=== PATIENT | female | born 1980 | race Hispanic/Latino ===

== ENCOUNTER 2020-01-10 11:49 | Emergency (ER) | payer MEDICARE ==
--- NOTE | 2020-01-10 13:30 | XRay Report ---
CHEST 2 VIEWS INDICATION / CLINICAL INFORMATION: Chest Pain. COMPARISON: None available. FINDINGS: SUPPORT DEVICES: None. HEART / MEDIASTINUM: No significant abnormality. LUNGS / PLEURA: No significant pulmonary or pleural abnormality. No pneumothorax. ADDITIONAL FINDINGS: No significant additional findings. IMPRESSION: 1. No acute findings. Signer Name: Brad Barton MD Signed: 01/10/2020 1:26 PM Workstation Name: [id number]
--- NOTE | 2020-01-10 13:39 | Cat Scan Report ---
CT BRAIN: 01/10/2020 INDICATION / CLINICAL INFORMATION: AMS. COMPARISON: None available. FINDINGS: BRAIN/INTRACRANIAL STRUCTURES: Unenhanced CT images of the brain demonstrate no evidence of acute int racranial abnormality. Ventricles and sulci are within normal limits of size and shape for a patient of this age. There is no evidence of acute ischemic injury, hemorrhage, or mass. There are no abnormal extra-axial fluid collections. EXTRACRANIAL STRUCTURES: Unremarkable. IMPRESSION: Negative unenhanced CT of the brain. All CT scans at this location are performed using dose reduction to ALARA by means of automated expos ure control. Signer Name: Lee Jimenez MD Signed: 01/10/2020 1:34 PM Workstation Name: [id number]
[2020-01-10 14:27] LABS: Hematocrit 35.5 % (30.3-42.9); Hemoglobin 12.4 gm/dl (10.1-14.3); Mean Corpuscular HGB Conc 35 % (30-34); Mean Corpuscular Volume 84 fl (79-97); Platelet Count 253 K/mm3 (140-440); Red Blood Count 4.24 M/mm3 (3.65-5.03); Red Cell Distribution Width 13.7 % (13.2-15.2)
[2020-01-10 14:31] LABS: INR 1.03 (0.87-1.13); Partial Thromboplastin Time 23.8 Sec. (24.2-36.6)
[2020-01-10 14:42] LABS: Creatine Kinase MB 1.9 ng/mL (0.0-4.0)
[2020-01-10 14:46] LABS: Alanine Aminotransferase 29 units/L (7-56); Albumin 4.1 g/dL (3.9-5)
[2020-01-10 15:17] LABS: Bilirubin,Direct < 0.2 mg/dL (0-0.2)
--- NOTE | 2020-01-10 15:21 | Emergency Department Report ---
ED General Adult HPI - General Chief complaint: Chest Pain Stated complaint: CHEST PAIN Time Seen by Provider: 01/10/20 12:23 Source: patient, family Mode of arrival: Ambulatory Limitations: No Limitations - History of Present Illness Initial comments: This is a 47-year-old female that does not complain of chest pain. She does not complain of pain whatsoever. According to the triage note there was a complaint of chest pain and she was given aspirin and nitroglycerin x1 and route. However she tells me that she is a patient who has been at [facility] for at least 2 days. She was prior at [facility] for depression and suicidal ideation. She states that she did not take an overdose. She does not complain of shortness of breath nor chest pain. She does not complain of leg swelling or pain. She states that she was sent from [facility] because she was weak and dizzy for evaluation. She is poorly cooperative. She is somewhat lethargic. She is not providing a lot of information spontaneously but did answer questions. -: days(s) - Related Data Allergies Allergy/AdvReac Type Severity Reaction Status Date / Time clarithromycin [From Biaxin] Allergy Hives Verified 01/10/20 12:29 prochlorperazine Allergy Vomiting Verified 01/10/20 12:30 [From Compazine] tramadol Allergy Seizure Verified 01/10/20 12:30 ED Review of Systems ROS: Stated complaint: CHEST PAIN Other details as noted in HPI Comment: Unobtainable due to pts medical conditions ED Past Medical Hx - Past Medical History Previous Medical History?: No Additional medical history: Denies cardiac history. Denies history of VTE or previous anticoagulation. Denies history of diabetes. - Social History Smoking Status: Former Smoker Substance Use Type: None ED Physical Exam - General Limitations: Altered Mental Status (Psychiatric disorder for cooperation), Physical Limitation General appearance: lethargic - Head Head exam: Present: atraumatic, normocephalic - Eye Eye exam: Present: normal appearance. Absent: scleral icterus - ENT ENT exam: Present: mucous membranes moist - Neck Neck exam: Present: normal inspection. Absent: tenderness, meningismus - Respiratory Respiratory exam: Present: normal lung sounds bilaterally. Absent: respiratory distress - Cardiovascular Cardiovascular Exam: Present: regular rate, normal rhythm. Absent: systolic murmur, diastolic murmur, rubs, gallop - GI/Abdominal GI/Abdominal exam: Present: soft, normal bowel sounds. Absent: distended, tenderness, guarding, rebound, rigid - Extremities Exam Extremities exam: Present: normal capillary refill. Absent: pedal edema, calf tenderness - Back Exam Back exam: Present: other (Limited exam) - Neurological Exam Neurological exam: Present: alert, oriented X3, CN II-XII intact (As testable). Absent: motor sensory deficit - Psychiatric Psychiatric exam: Present: depressed, flat affect - Skin Skin exam: Present: warm, dry, intact, normal color. Absent: rash ED Course Vital Signs 01/10/20 01/10/20 01/10/20 12:02 12:16 12:30 Temperature 98.6 F Pulse Rate 72 75 Respiratory 14 12 38 H Rate Blood Pressure 120/84 117/82 O2 Sat by Pulse 100 99 Oximetry 01/10/20 01/10/20 01/10/20 13:02 13:30 14:00 Temperature Pulse Rate Respiratory Rate Blood Pressure 117/82 108/66 117/82 O2 Sat by Pulse 99 95 93 Oximetry 01/10/20 14:30 Temperature Pulse Rate Respiratory Rate Blood Pressure 92/63 O2 Sat by Pulse 94 Oximetry ED Medical Decision Making - Lab Data Result diagrams: 01/10/20 13:00 01/10/20 13:00 Laboratory Results - last 24 hr 01/10/20 01/10/20 01/10/20 13:00 13:00 13:00 WBC 8.7 RBC 4.24 Hgb 12.4 Hct 35.5 MCV 84 MCH 29 MCHC 35 H RDW 13.7 Plt Count 253 Lymph % (Auto) Propellant [employer]er [place] % (Auto) Propellant Assembler Eos % (Auto) Propellant Assembler Baso % (Auto) Propellant As[employer]er Lymph # Propellant As[employer]er [place] # Propellant Assembler Eos # Propellant Assembler Baso # Propellant Assembler Seg Neutrophils % Propellant Assembler Seg Neutrophils # Propellant Assembler PT INR APTT Lactic Acid Magnesium Total Bilirubin 0.20 Direct Bilirubin < 0.2 Indirect Bilirubin 0.0 AST 27 ALT 29 Alkaline Phosphatase 82 Total Creatine Kinase 92 CK-MB (CK-2) 1.9 CK-MB (CK-2) Rel Index 2.0 Troponin T < 0.010 NT-Pro-B Natriuret Pep Total Protein 7.6 Albumin 4.1 Albumin/Globulin Ratio 1.2 HCG, Qual 01/10/20 01/10/20 01/10/20 13:00 13:00 13:00 WBC RBC Hgb Hct MCV MCH MCHC RDW Plt Count Lymph % (Auto) [place] % (Auto) Eos % (Auto) Baso % (Auto) Lymph # [place] # Eos # Baso # Seg Neutrophils % Seg Neutrophils # PT 13.6 INR 1.03 APTT 23.8 L Lactic Acid 1.50 Magnesium 2.30 Total Bilirubin Direct Bilirubin Indirect Bilirubin AST ALT Alkaline Phosphatase Total Creatine Kinase CK-MB (CK-2) CK-MB (CK-2) Rel Index Troponin T NT-Pro-B Natriuret Pep 53.25 Total Protein Albumin Albumin/Globulin Ratio HCG, Qual 01/10/20 13:00 WBC RBC Hgb Hct MCV MCH MCHC RDW Plt Count Lymph % (Auto) [place] % (Auto) Eos % (Auto) Baso % (Auto) Lymph # [place] # Eos # Baso # Seg Neutrophils % Seg Neutrophils # PT INR APTT Lactic Acid Magnesium Total Bilirubin Direct Bilirubin Indirect Bilirubin AST ALT Alkaline Phosphatase Total Creatine Kinase CK-MB (CK-2) CK-MB (CK-2) Rel Index Troponin T NT-Pro-B Natriuret Pep Total Protein Albumin Albumin/Globulin Ratio HCG, Qual Negative - EKG Data -: EKG Interpreted by Wi EKG shows normal: sinus rhythm, axis, intervals, QRS complexes, ST-T waves Rate: normal - Radiology Data Radiology results: report reviewed (Chest x-ray no acute process) Critical care attestation.: If time is entered above; I have spent that time in minutes in the direct care of this critically ill patient, excluding procedure time. ED Disposition Clinical Impression: Medical clearance for psychiatric admission, Psychiatric disorder Disposition: - TO HOME OR SELFCARE Is pt being admited?: No Does the pt Need Aspirin: No Condition: Stable Additional Instructions: Further care at [facility]. Referrals: PRIMARY CARE, [Primary Care Provider] - 3-5 Days Time of Disposition: 15:55
[2020-01-10 15:50] LABS: BUN/Creatinine Ratio 22; Blood Urea Nitrogen 13 mg/dL (7-17); Calcium 9.3 mg/dL (8.4-10.2); Hemolysis Index 82
[2020-01-10 16:11] VITALS: BP 108/78
[2020-01-10 16:14] LABS: HCG Qualitative,Urine Negative (Negative)
[2020-01-10 16:23] LABS: Bilirubin,Urine NEG (Negative); Blood,Urine NEG (Negative); Color,Urine Yellow (Yellow); Hyaline Casts,Urine 6 /LPF; Mucus,Urine FEW /HPF; Protein,Urine <15 mg/dL mg/dL (Negative); Urobilinogen,Urine < 2.0 mg/dL (<2.0)
== END 2020-01-10 17:25 | disposition home or self-care (01) ==
LOC: ED 11:49
DX: Z04.6 Encounter for general psychiatric examination, requested by authority (principal); F99 Mental disorder, not otherwise specified; R53.1 Weakness; R42 Dizziness and giddiness; Z87.891 Personal history of nicotine dependence; Z88.8 Allergy status to other drugs, medicaments and biological substances
CPT/HCPCS: 36415; 70450; 71046; 80048; 80076; 81001; 81025; 82140; 82550; 82553; 83735; 83880; 84484; 84703; 85025; 85379; 85610; 85730; 93005

== ENCOUNTER 2020-05-04 20:55 | Emergency (ER) | payer MEDICARE ==
[2020-05-04] MEDS ORDERED: levETIRAcetam 1000 MG/NS 0.75% 1,000 MG/100 ML BAG IV ONE (21:04)
[2020-05-04] MEDS ORDERED: ONDANSETRON 4 MG/2 ML INJ IV ONE (21:07)
[2020-05-04] MEDS ORDERED: MORPHINE 4 MG/1 ML INJ IV ONE (21:07)
--- NOTE | 2020-05-04 21:10 | Emergency Department Report ---
ED Seizure HPI - General Chief Complaint: Seizure Stated Complaint: POSS SZ Time Seen by Provider: 05/04/20 21:03 Source: patient, EMS Mode of arrival: Stretcher Limitations: No Limitations - History of Present Illness Initial Comments: Chief complaint: "I could feel a seizure coming on." HPI this is a 39-year-old female with history of seizure disorder, TIA, hypertension who presents with witnessed seizure. Several household members witness generalized tonic-clonic seizure which lasted 1 to 2 minutes. Patient stated that she fell to the floor as a result of the seizure. She aggravated chronic back pain as a result of the fall. She has history of several back surgeries and chronic back pain. She normally takes phenobarbital to treat seizure disorder. She has been without this medication for quite some time. MD Complaint: seizure -: Sudden, This evening Description of Episode: loss of consciousness, tonic-clonic movement Witnessed:: Yes Trauma: No Seizure History: known seizure disorder Place: home Possible Precipitating Event: other (Lack of medication, she has been without phenobarbital) Associated Symptoms: other (Chronic back pain) Treatments Prior to Arrival: none (EMS transport) - Related Data Previous Rx's Medication Instructions Recorded Last Taken Type PHENobarbitaL [PHENobarbital] 60 mg PO BID 30 Days #60 tablet 05/05/20 Unknown Rx Allergies Allergy/AdvReac Type Severity Reaction Status Date / Time clarithromycin [From Biaxin] Allergy Hives Verified 01/10/20 12:29 prochlorperazine Allergy Vomiting Verified 01/10/20 12:30 [From Compazine] tramadol Allergy Seizure Verified 01/10/20 12:30 ED Review of Systems ROS: Stated complaint: POSS SZ Other details as noted in HPI Comment: All other systems reviewed and negative Respiratory: denies: cough, shortness of breath Gastrointestinal: denies: abdominal pain, nausea, vomiting Neurological: denies: headache, numbness, paresthesias ED Past Medical Hx - Past Medical History Previous Medical History?: Yes Hx Hypertension: Yes Hx CVA: Yes (TIA) Hx of Cancer: Yes (Bone) Hx Seizures: Yes Additional medical history: Denies cardiac history. Denies history of VTE or previous anticoagulation. Denies history of diabetes. - Surgical History Past Surgical History?: Yes Additional Surgical History: back - Social History Smoking Status: Former Smoker Substance Use Type: None - Medications Home Medications: Home Medications Medication Instructions Recorded Confirmed Last Taken Type PHENobarbitaL [PHENobarbital] 60 mg PO BID 30 Days #60 tablet 05/05/20 Unknown Rx ED Physical Exam - General Limitations: No Limitations General appearance: alert, in no apparent distress - Head Head exam: Present: atraumatic, normocephalic - Eye Eye exam: Present: normal appearance - ENT ENT exam: Present: mucous membranes moist - Neck Neck exam: Present: normal inspection, full ROM - Respiratory Respiratory exam: Present: normal lung sounds bilaterally. Absent: respiratory distress, wheezes, rales, rhonchi - Cardiovascular Cardiovascular Exam: Present: regular rate, normal rhythm, normal heart sounds. Absent: systolic murmur, diastolic murmur, rubs, gallop - GI/Abdominal GI/Abdominal exam: Present: soft, normal bowel sounds. Absent: distended, tenderness, guarding, rebound - Extremities Exam Extremities exam: Present: normal inspection - Back Exam Back exam: Present: normal inspection - Neurological Exam Neurological exam: Present: alert, oriented X3, normal gait - Psychiatric Psychiatric exam: Present: normal affect, normal mood - Skin Skin exam: Present: warm, dry, intact, normal color. Absent: rash ED Course Vital Signs 05/04/20 05/04/20 21:13 21:18 Temperature 99.1 F 99.1 F Pulse Rate 105 H 104 H Respiratory 18 18 Rate Blood Pressure 127/89 Blood Pressure 127/89 [Left] O2 Sat by Pulse 97 98 Oximetry ED Medical Decision Making - Medical Decision Making Breakthrough seizure history of seizure disorder, medication noncompliance. Patient received IV Keppra load. Have observed for 4 hours in emergency department without subsequent seizure. She had normal mental status and neuro exam upon arrival. I have prescribed phenobarbital her home medication. Repeat heart rate 86 bpm prior to discharge. Critical care attestation.: If time is entered above; I have spent that time in minutes in the direct care of this critically ill patient, excluding procedure time. ED Disposition Clinical Impression: Seizure, Breakthrough seizure Disposition: DC-01 TO HOME OR SELFCARE Is pt being admited?: No Does the pt Need Aspirin: No Condition: Stable Instructions: Epilepsy (ED), Recurrent Seizures Adult (ED) Prescriptions: PHENobarbitaL [PHENobarbital] 60 mg PO BID 30 Days #60 tablet Referrals: KAI MENDEZ MD [Primary Care Provider] - 3-5 Days CHRISTIAN ACUNA MD [Staff Physician] - 3-5 Days
[2020-05-05 00:57] VITALS: BP 110/66
== END 2020-05-05 00:57 | disposition home or self-care (01) ==
LOC: ED 20:55
DX: R56.9 Unspecified convulsions (principal); I10 Essential (primary) hypertension; Z86.73 Personal history of transient ischemic attack (TIA), and cerebral infarction without residual deficits; Z85.830 Personal history of malignant neoplasm of bone; Z98.890 Other specified postprocedural states; Z87.891 Personal history of nicotine dependence; Z79.899 Other long term (current) drug therapy; Z88.8 Allergy status to other drugs, medicaments and biological substances
CPT/HCPCS: 96365; 96375; 99283; J1953; J2270; J2405

== ENCOUNTER 2020-05-24 09:46 | Emergency (ER) | payer MEDICARE ==
--- NOTE | 2020-05-24 12:10 | Emergency Department Report ---
ED Psych HPI - General Chief Complaint: Back Pain/Injury Stated Complaint: FALL Time Seen by Provider: 05/24/20 11:57 Source: patient Mode of arrival: Stretcher - History of Present Illness Initial Comments: This is a 39-year-old female with chronic lower back pain. She claims that she slipped on water and fell exacerbating her chronic lower back pain today in her kitchen 20 minutes before she called the ambulance. She arrived at triage and told the nurse or charge nurse that she wanted to kill herself because of her chronic pain. I asked her to verify this and she told me likewise that she does not feel that she can go on due to chronic pain. She states that she falls all the time. She also complains of problems with her memory. She states that she was placed on Suboxone but has been off that medicine for 4 days. She states that she is currently taking phenobarbital, Xanax and Geodon. She is asking me for something to help her relax. She did not seem anxious in fact she seemed to be somewhat oversedated. I have seen this patient in the past for medical clearance when she was transferred from [facility] for weakness. There was no substantive a bnormality found at that time. MD Complaint: feels depressed -: Gradual, days(s) Associated Psychiatric Symptoms: depression History of same: Yes Quality: intermittent Improves With: none Worsens With: none Context: other (Apparent prescription drug abuse) Associated Symptoms: denies other symptoms Treatments Prior to Arrival: none If Self Harm: admits thoughts of - Related Data Previous Rx's Medication Instructions Recorded Last Taken Type PHENobarbitaL [PHENobarbital] 60 mg PO BID 30 Days #60 tablet 05/05/20 Unknown Rx Allergies Allergy/AdvReac Type Severity Reaction Status Date / Time clarithromycin [From Biaxin] Allergy Hives Verified 05/24/20 12:20 prochlorperazine Allergy Vomiting Verified 05/24/20 12:20 [From Compazine] tramadol Allergy Seizure Verified 05/24/20 12:20 ED Review of Systems ROS: Stated complaint: FALL Other details as noted in HPI Constitutional: denies: chills, fever Eyes: denies: eye pain, eye discharge, vision change ENT: denies: ear pain, throat pain Respiratory: denies: cough, shortness of breath, wheezing Cardiovascular: denies: chest pain, palpitations Endocrine: no symptoms reported Gastrointestinal: denies: abdominal pain, nausea, diarrhea Genitourinary: denies: urgency, dysuria, discharge Musculoskeletal: back pain (Chronic lower back pain exacerbated by a fall). denies: joint swelling, arthralgia Skin: denies: rash, lesions Neurological: denies: headache, weakness, paresthesias Psychiatric: as per HPI, depression. denies: anxiety Hematological/Lymphatic: denies: easy bleeding, easy bruising ED Past Medical Hx - Past Medical History Previous Medical History?: Yes Hx Hypertension: Yes Hx CVA: Yes (TIA) Hx Seizures: Yes Additional medical history: Denies cardiac history. Denies history of VTE or previous anticoagulation. Denies history of diabetes. - Surgical History Past Surgical History?: Yes Additional Surgical History: back - Social History Smoking Status: Never Smoker Substance Use Type: None - Medications Home Medications: Home Medications Medication Instructions Recorded Confirmed Last Taken Type PHENobarbitaL [PHENobarbital] 60 mg PO BID 30 Days #60 tablet 05/05/20 Unknown Rx ED Physical Exam - General Limitations: Physical Limitation, Other (Reasonably well oriented) General appearance: in no apparent distress, lethargic - Head Head exam: Present: atraumatic, normocephalic - Eye Eye exam: Present: normal appearance, PERRL, EOMI. Absent: scleral icterus - ENT ENT exam: Present: mucous membranes moist - Neck Neck exam: Present: normal inspection. Absent: tenderness, meningismus - Respiratory Respiratory exam: Present: normal lung sounds bilaterally. Absent: respiratory distress - Cardiovascular Cardiovascular Exam: Present: regular rate, normal rhythm. Absent: systolic murmur, diastolic murmur, rubs, gallop - GI/Abdominal GI/Abdominal exam: Present: soft, normal bowel sounds. Absent: distended, tenderness, guarding, rebound, rigid - Extremities Exam Extremities exam: Present: normal inspection. Absent: calf tenderness - Back Exam Back exam: Present: normal inspection. Absent: tenderness, CVA tenderness (R), CVA tenderness (L), muscle spasm, paraspinal tenderness, vertebral tenderness - Neurological Exam Neurological exam: Present: alert, oriented X3, CN II-XII intact. Absent: motor sensory deficit - Psychiatric Psychiatric exam: Present: normal affect, normal mood - Skin Skin exam: Present: warm, dry, intact, normal color. Absent: rash ED Course Vital Signs 05/24/20 10:02 Temperature 98.4 F Pulse Rate 106 H Respiratory 18 Rate Blood Pressure 133/83 O2 Sat by Pulse 97 Oximetry - Reevaluation(s) Reevaluation #1: It appears that we will have to enter an obligatory 1013 considering the patient's voiced complaints of suicidal ideation. Medical clearance is in progress. I do not have any current reason to suspect likely acute back injury. 05/24/20 12:16 ED Medical Decision Making - Lab Data Result diagrams: 05/24/20 11:38 05/24/20 11:38 Laboratory Results - last 24 hr 05/24/20 05/24/20 05/24/20 11:38 11:38 11:38 WBC RBC Hgb Hct MCV MCH MCHC RDW Plt Count Lymph % (Auto) Perry % (Auto) Eos % (Auto) Baso % (Auto) Lymph # Perry # Eos # Baso # Seg Neutrophils % Seg Neutrophils # Sodium 136 L Potassium 3.0 L Chloride 93.3 L Carbon Dioxide 25 Anion Gap 21 BUN 11 Creatinine 0.7 Estimated GFR > 60 BUN/Creatinine Ratio 16 Glucose 130 H Calcium 10.2 Total Bilirubin Direct Bilirubin Indirect Bilirubin AST ALT Alkaline Phosphatase Total Creatine Kinase CK-MB (CK-2) CK-MB (CK-2) Rel Index Total Protein Albumin Albumin/Globulin Ratio HCG, Qual Salicylates 3.0 Urine Opiates Screen Urine Methadone Screen Acetaminophen 5.0 L Ur Barbiturates Screen Ur Phencyclidine Scrn Ur Amphetamines Screen Phenobarbital U Benzodiazepines Scrn Urine Cocaine Screen U Marijuana (THC) Screen Drugs of Abuse Note Plasma/Serum Alcohol 05/24/20 05/24/20 05/24/20 11:38 11:38 11:38 WBC 13.5 H RBC 5.66 H Hgb 15.9 H Hct 47.2 H MCV 83 MCH 28 MCHC 34 RDW 14.6 Plt Count 392 Lymph % (Auto) 16.1 Perry % (Auto) 3.9 Eos % (Auto) 1.0 Baso % (Auto) 0.8 Lymph # 2.2 Perry # 0.5 Eos # 0.1 Baso # 0.1 Seg Neutrophils % 78.2 H Seg Neutrophils # 10.5 H Sodium Potassium Chloride Carbon Dioxide Anion Gap BUN Creatinine Estimated GFR BUN/Creatinine Ratio Glucose Calcium Total Bilirubin 0.30 Direct Bilirubin < 0.2 Indirect Bilirubin 0.1 AST 20 ALT 19 Alkaline Phosphatase 121 Total Creatine Kinase 45 CK-MB (CK-2) 1.2 CK-MB (CK-2) Rel Index 2.6 Total Protein 9.0 H Albumin 4.7 Albumin/Globulin Ratio 1.1 HCG, Qual Salicylates Urine Opiates Screen Urine Methadone Screen Acetaminophen Ur Barbiturates Screen Ur Phencyclidine Scrn Ur Amphetamines Screen Phenobarbital U Benzodiazepines Scrn Urine Cocaine Screen U Marijuana (THC) Screen Drugs of Abuse Note Plasma/Serum Alcohol < 0.01 05/24/20 05/24/20 05/24/20 12:18 12:18 12:59 WBC RBC Hgb Hct MCV MCH MCHC RDW Plt Count Lymph % (Auto) Perry % (Auto) Eos % (Auto) Baso % (Auto) Lymph # Perry # Eos # Baso # Seg Neutrophils % Seg Neutrophils # Sodium Potassium Chloride Carbon Dioxide Anion Gap BUN Creatinine Estimated GFR BUN/Creatinine Ratio Glucose Calcium Total Bilirubin Direct Bilirubin Indirect Bilirubin AST ALT Alkaline Phosphatase Total Creatine Kinase CK-MB (CK-2) CK-MB (CK-2) Rel Index Total Protein Albumin Albumin/Globulin Ratio HCG, Qual Negative Salicylates Urine Opiates Screen Presumptive negative Urine Methadone Screen Presumptive negative Acetaminophen Ur Barbiturates Screen Presumptive positive Ur Phencyclidine Scrn Presumptive negative Ur Amphetamines Screen Presumptive positive Phenobarbital 7.0 L U Benzodiazepines Scrn Presumptive positive Urine Cocaine Screen Presumptive negative U Marijuana (THC) Screen Presumptive positive Drugs of Abuse Note Disclamer Plasma/Serum Alcohol Critical care attestation.: If time is entered above; I have spent that time in minutes in the direct care of this critically ill patient, excluding procedure time. ED Disposition Clinical Impression: Medical clearance for psychiatric admission, Suicidal ideation, Hypokalemia, Polysubstance abuse Disposition: DC/TX-65 PSY HOSP/PSY UNIT Is pt being admited?: No Does the pt Need Aspirin: No Condition: Stable Referrals: TINO YOUNG [Other] - 3-5 Days Time of Disposition: 14:44
[2020-05-24] MEDS ORDERED: ZIPRASIDONE MESYLATE 20 MG VIAL IM PRN (12:11)
[2020-05-24] MEDS ORDERED: ACETAMINOPHEN 325 MG TAB PO PRN (12:17)
[2020-05-24] MEDS ORDERED: ALUM-MAG HYDROXIDE-SIMETHICONE 200-200-20MG/5ML ORAL LIQD 30 ML PO PRN (12:17)
[2020-05-24] MEDS ORDERED: MAGNESIUM HYDROXIDE (MOM) ORAL LIQD UDC PO PRN (12:17)
[2020-05-24 12:22] LABS: Basophils # (Auto) 0.1 K/mm3 (0.0-0.1); Basophils % (Auto) 0.8 % (0.0-1.8); Eosinophils # (Auto) 0.1 K/mm3 (0.0-0.4); Hematocrit 47.2 % (30.3-42.9); Hemoglobin 15.9 gm/dl (10.1-14.3); Lymphocytes # (Auto) 2.2 K/mm3 (1.2-5.4); Lymphocytes % (Auto) 16.1 % (13.4-35.0); Mean Corpuscular HGB Conc 34 % (30-34); Mean Corpuscular Volume 83 fl (79-97); Monocytes # (Auto) 0.5 K/mm3 (0.0-0.8); Monocytes % (Auto) 3.9 % (0.0-7.3); Platelet Count 392 K/mm3 (140-440); Red Blood Count 5.66 M/mm3 (3.65-5.03); Red Cell Distribution Width 14.6 % (13.2-15.2)
[2020-05-24 12:30] LABS: BUN/Creatinine Ratio 16; Blood Urea Nitrogen 11 mg/dL (7-17); Calcium 10.2 mg/dL (8.4-10.2); Hemolysis Index 10
[2020-05-24 12:40] LABS: Creatine Kinase MB 1.2 ng/mL (0.0-4.0)
[2020-05-24 12:43] LABS: Alanine Aminotransferase 19 units/L (7-56); Albumin 4.7 g/dL (3.9-5)
[2020-05-24 12:45] LABS: Bilirubin,Direct < 0.2 mg/dL (0-0.2)
[2020-05-24] MEDS ORDERED: ZIPRASIDONE 20 MG CAP PO SCH (13:00)
[2020-05-24] MEDS ORDERED: POTASSIUM CHLORIDE ER 20 MEQ TAB PO ONE ×2 (13:58→17:00)
[2020-05-24 14:05] LABS: Amphetamine Screen,Urine PRESUMPTIVE POSITIVE; Benzodiazepines Screen,Urine PRESUMPTIVE POSITIVE; Cannabinoid Screen,Urine PRESUMPTIVE POSITIVE; Cocaine Screen,Urine PRESUMPTIVE NEGATIVE; Methadone Screen,Urine PRESUMPTIVE NEGATIVE; Opiate Screen,Urine PRESUMPTIVE NEGATIVE
--- NOTE | 2020-05-24 14:05 | XRay Report ---
LUMBOSACRAL SPINE 3 VIEWS INDICATION / CLINICAL INFORMATION: Fall Chronic back pain. COMPARISON: None available. FINDINGS: VERTEBRAE: Postoperative change from thoracolumbar posterior fusion with high density cement versus g rafting material associated with the transpedicular screws and L1 vertebral body. No evidence of hard alfaro disruption or loosening no fracture. No significant malalignment. DISC SPACES / FACET JOINTS:Disc spaces are satisfactorily maintained. There is lower lumbar facet deg enerative arthrosis. PARASPINAL SOFT TISSUES:No significant abnormality. ADDITIONAL FINDINGS: None. Signer Name: Davonte Weiss MD Signed: 05/24/2020 2:01 PM Workstation Name: [id number]
[2020-05-24 16:50] VITALS: BP 105/77
== END 2020-05-24 17:44 ==
LOC: ED 09:46
DX: E87.6 Hypokalemia (principal); F19.10 Other psychoactive substance abuse, uncomplicated; R45.851 Suicidal ideations; I10 Essential (primary) hypertension; Z86.73 Personal history of transient ischemic attack (TIA), and cerebral infarction without residual deficits; Z86.69 Personal history of other diseases of the nervous system and sense organs; Z79.899 Other long term (current) drug therapy; Z88.8 Allergy status to other drugs, medicaments and biological substances; Z00.8 Encounter for other general examination; Z98.890 Other specified postprocedural states; W01.0XXA Fall on same level from slipping, tripping and stumbling without subsequent striking against object, initial encounter; Y93.89 Activity, other specified; Y92.89 Other specified places as the place of occurrence of the external cause; Y99.8 Other external cause status
CPT/HCPCS: 36415; 72100; 80048; 80076; 80184; 80307; 82550; 82553; 84703; 85025; 96372; 99285; J3486; 80320; G0480

== ENCOUNTER 2020-07-11 11:27 | Observation (INO) | payer MEDICARE ==
--- NOTE | 2020-07-11 12:36 | Emergency Department Report ---
ED General Adult HPI - General Chief complaint: Seizure Stated complaint: SEIZURE Time Seen by Provider: 07/11/20 12:18 Source: EMS Mode of arrival: Stretcher Limitations: No Limitations - History of Present Illness Initial comments: This is a 39-year-old female with a history of a psychiatric disorder who resides in a [facility]. I have seen her in the past. She has a history of polysubstance abuse as well. She states that she is not taking her Suboxone now. She states that she has had seizures "all night". Apparently as per previous record she has had a history of witnessed tonic-clonic seizures. I do not think she is compliant with medication. She reports passing out several times last night. This was associated with injury to her back and right foot. She states she hit her head as well. She is awake and alert. She states that she does not know what day it is the month or the year. However she is really quite awake. -: During the night Location: head, back, lower extremity Quality: aching Consistency: constant Worsens with: none Associated Symptoms: denies other symptoms (Very limited review of systems available) Treatments Prior to Arrival: none - Related Data Previous Rx's Medication Instructions Recorded Last Taken Type PHENobarbitaL [PHENobarbital] 60 mg PO BID 30 Days #60 tablet 05/05/20 Unknown Rx Allergies Allergy/AdvReac Type Severity Reaction Status Date / Time clarithromycin [From Biaxin] Allergy Hives Verified 05/24/20 12:20 prochlorperazine Allergy Vomiting Verified 05/24/20 12:20 [From Compazine] tramadol Allergy Seizure Verified 05/24/20 12:20 ED Review of Systems ROS: Stated complaint: SEIZURE Other details as noted in HPI Comment: Unobtainable due to pts medical conditions ED Past Medical Hx - Past Medical History Previous Medical History?: Yes Hx Hypertension: Yes Hx CVA: Yes (TIA) Hx Seizures: Yes Additional medical history: Denies cardiac history. Denies history of VTE or previous anticoagulation. Denies history of diabetes. - Surgical History Past Surgical History?: Yes Additional Surgical History: back - Social History Smoking Status: Never Smoker Substance Use Type: None - Medications Home Medications: Home Medications Medication Instructions Recorded Confirmed Last Taken Type PHENobarbitaL [PHENobarbital] 60 mg PO BID 30 Days #60 tablet 05/05/20 Unknown Rx ED Physical Exam - General Limitations: Altered Mental Status, Physical Limitation General appearance: alert, lethargic, obese - Head Head exam: Present: atraumatic, normocephalic - Eye Eye exam: Present: normal appearance, PERRL, EOMI. Absent: scleral icterus - ENT ENT exam: Present: mucous membranes moist - Neck Neck exam: Present: normal inspection. Absent: tenderness, meningismus - Respiratory Respiratory exam: Present: normal lung sounds bilaterally. Absent: respiratory distress - Cardiovascular Cardiovascular Exam: Present: regular rate, normal rhythm. Absent: systolic murmur, diastolic murmur, rubs, gallop - GI/Abdominal GI/Abdominal exam: Present: soft, normal bowel sounds. Absent: distended, tenderness, guarding, rebound, rigid - Extremities Exam Extremities exam: Present: normal inspection, other (Patient complaints of discomfort in her right flank however she has an ecchymosis of the left flank) - Back Exam Back exam: Present: normal inspection. Absent: paraspinal tenderness, vertebral tenderness - Neurological Exam Neurological exam: Present: alert, altered, CN II-XII intact (As testable). Absent: motor sensory deficit - Psychiatric Psychiatric exam: Present: normal mood, flat affect - Skin Skin exam: Present: warm, dry, intact, normal color. Absent: rash ED Course Vital Signs 07/11/20 11:35 Temperature 98.5 F Pulse Rate 84 Respiratory 16 Rate Blood Pressure 153/101 O2 Sat by Pulse 97 Oximetry - Reevaluation(s) Reevaluation #1: Given Toradol initially for back pain. Patient told the nurse it somewhat persistent. Otherwise no substantive change in the emergency department. Patient is noted to have an elevated white blood cell count. She has had multiple syncopal episodes, possible seizure overnight. She suffered significant falls. She has a minor compression fracture in the lumbar spine. Thus, I have discussed the patient's presentation with Dr. Gonzalez the hospitalist who will be admitting her for further care and evaluation. 07/11/20 15:23 ED Medical Decision Making - Lab Data Result diagrams: 07/11/20 13:02 07/11/20 13:02 Laboratory Results - last 24 hr 07/11/20 07/11/20 07/11/20 12:45 12:45 13:02 WBC 17.6 H RBC 4.83 Hgb 13.8 Hct 40.0 MCV 83 MCH 29 MCHC 34 RDW 14.9 Plt Count 281 Lymph % (Auto) 10.4 L [place] % (Auto) 3.6 Eos % (Auto) 0.8 Baso % (Auto) 0.7 Lymph # (Auto) 1.8 [place] # (Auto) 0.6 Eos # (Auto) 0.1 Baso # (Auto) 0.1 Seg Neutrophils % 84.5 H Seg Neutrophils # 14.8 H PT INR APTT Sodium Potassium Chloride Carbon Dioxide Anion Gap BUN Creatinine Estimated GFR BUN/Creatinine Ratio Glucose Lactic Acid Calcium Ammonia Total Creatine Kinase Troponin T TSH Urine Color Straw Urine Turbidity Clear Urine pH 8.0 H Ur Specific [place] 1.009 Urine Protein <15 mg/dl Urine Glucose (UA) Neg Urine Ketones Neg Urine Blood Neg Urine Nitrite Neg Ur Reducing Substances Not Reportable Urine Bilirubin Neg Urine Ictotest Not Reportable Urine Urobilinogen < 2.0 Ur Leukocyte Esterase Neg Urine WBC (Auto) 1.0 Urine RBC (Auto) 1.0 U Epithel Cells (Auto) 1.0 Urine HCG, Qual Negative Salicylates Urine Opiates Screen Negative Urine Methadone Screen Negative Acetaminophen Ur Barbiturates Screen Negative Ur Phencyclidine Scrn Negative Ur Amphetamines Screen Negative U Benzodiazepines Scrn Negative Urine Cocaine Screen Positive U Marijuana (THC) Screen Negative Drugs of Abuse Note Disclamer 07/11/20 07/11/20 07/11/20 13:02 13:02 13:02 WBC RBC Hgb Hct MCV MCH MCHC RDW Plt Count Lymph % (Auto) [place] % (Auto) Eos % (Auto) Baso % (Auto) Lymph # (Auto) [place] # (Auto) Eos # (Auto) Baso # (Auto) Seg Neutrophils % Seg Neutrophils # PT 13.2 INR 0.98 APTT 27.1 Sodium 138 Potassium 4.0 Chloride 99.4 Carbon Dioxide 24 Anion Gap 19 BUN 11 Creatinine 0.5 L Estimated GFR > 60 BUN/Creatinine Ratio 22 Glucose 111 H Lactic Acid 1.50 Calcium 9.3 Ammonia Total Creatine Kinase 395 H Troponin T < 0.010 TSH Urine Color Urine Turbidity Urine pH Ur Specific [place] Urine Protein Urine Glucose (UA) Urine Ketones Urine Blood Urine Nitrite Ur Reducing Substances Urine Bilirubin Urine Ictotest Urine Urobilinogen Ur Leukocyte Esterase Urine WBC (Auto) Urine RBC (Auto) U Epithel Cells (Auto) Urine HCG, Qual Salicylates Urine Opiates Screen Urine Methadone Screen Acetaminophen Ur Barbiturates Screen Ur Phencyclidine Scrn Ur Amphetamines Screen U Benzodiazepines Scrn Urine Cocaine Screen U Marijuana (THC) Screen Drugs of Abuse Note 07/11/20 07/11/20 07/11/20 13:02 13:02 13:02 WBC RBC Hgb Hct MCV MCH MCHC RDW Plt Count Lymph % (Auto) [place] % (Auto) Eos % (Auto) Baso % (Auto) Lymph # (Auto) [place] # (Auto) Eos # (Auto) Baso # (Auto) Seg Neutrophils % Seg Neutrophils # PT INR APTT Sodium Potassium Chloride Carbon Dioxide Anion Gap BUN Creatinine Estimated GFR BUN/Creatinine Ratio Glucose Lactic Acid Calcium Ammonia 20.0 L Total Creatine Kinase Troponin T TSH Urine Color Urine Turbidity Urine pH Ur Specific [place] Urine Protein Urine Glucose (UA) Urine Ketones Urine Blood Urine Nitrite Ur Reducing Substances Urine Bilirubin Urine Ictotest Urine Urobilinogen Ur Leukocyte Esterase Urine WBC (Auto) Urine RBC (Auto) U Epithel Cells (Auto) Urine HCG, Qual Salicylates < 0.3 L Urine Opiates Screen Urine Methadone Screen Acetaminophen 5.0 L Ur Barbiturates Screen Ur Phencyclidine Scrn Ur Amphetamines Screen U Benzodiazepines Scrn Urine Cocaine Screen U Marijuana (THC) Screen Drugs of Abuse Note 07/11/20 13:02 WBC RBC Hgb Hct MCV MCH MCHC RDW Plt Count Lymph % (Auto) [place] % (Auto) Eos % (Auto) Baso % (Auto) Lymph # (Auto) [place] # (Auto) Eos # (Auto) Baso # (Auto) Seg Neutrophils % Seg Neutrophils # PT INR APTT Sodium Potassium Chloride Carbon Dioxide Anion Gap BUN Creatinine Estimated GFR BUN/Creatinine Ratio Glucose Lactic Acid Calcium Ammonia Total Creatine Kinase Troponin T TSH 0.146 L Urine Color Urine Turbidity Urine pH Ur Specific [place] Urine Protein Urine Glucose (UA) Urine Ketones Urine Blood Urine Nitrite Ur Reducing Substances Urine Bilirubin Urine Ictotest Urine Urobilinogen Ur Leukocyte Esterase Urine WBC (Auto) Urine RBC (Auto) U Epithel Cells (Auto) Urine HCG, Qual Salicylates Urine Opiates Screen Urine Methadone Screen Acetaminophen Ur Barbiturates Screen Ur Phencyclidine Scrn Ur Amphetamines Screen U Benzodiazepines Scrn Urine Cocaine Screen U Marijuana (THC) Screen Drugs of Abuse Note - EKG Data -: EKG Interpreted by Me EKG shows normal: sinus rhythm, axis, intervals, QRS complexes, ST-T waves Rate: normal - EKG Data Interpretation: no acute changes Critical care attestation.: If time is entered above; I have spent that time in minutes in the direct care of this critically ill patient, excluding procedure time. ED Disposition Clinical Impression: Recurrent syncope, Seizure disorder, Cocaine abuse Leukocytosis, unspecified Qualifiers: Leukocytosis type: unspecified Qualified Code(s): D72.829 - Elevated white blood cell count, unspecified Disposition: DC-09 OP ADMIT IP TO THIS HOSP Is pt being admited?: Yes Does the pt Need Aspirin: Yes Condition: Stable Referrals: PRIMARY CARE, [Primary Care Provider] - 3-5 Days Time of Disposition: 15:26
[2020-07-11] MEDS ORDERED: SODIUM CHLORIDE 0.9% 1000 ML 1,000 ML IV ONE (12:40)
[2020-07-11] MEDS ORDERED: levETIRAcetam 1000 MG/NS 0.75% 1,000 MG/100 ML BAG IV ONE (12:43)
[2020-07-11] MEDS ORDERED: KETOROLAC 30 MG/1 ML INJ IV ONE (12:55)
[2020-07-11 13:30] LABS: Basophils # (Auto) 0.1 K/mm3 (0.0-0.1); Basophils % (Auto) 0.7 % (0.0-1.8); Eosinophils # (Auto) 0.1 K/mm3 (0.0-0.4); Eosinophils % (Auto) 0.8 % (0.0-4.3); Hemoglobin 13.8 gm/dl (10.1-14.3); Lymphocytes # (Auto) 1.8 K/mm3 (1.2-5.4); Lymphocytes % (Auto) 10.4 % (13.4-35.0); Mean Corpuscular HGB Conc 34 % (30-34); Mean Corpuscular Volume 83 fl (79-97); Monocytes # (Auto) 0.6 K/mm3 (0.0-0.8); Monocytes % (Auto) 3.6 % (0.0-7.3); Platelet Count 281 K/mm3 (140-440); Red Blood Count 4.83 M/mm3 (3.65-5.03); Red Cell Distribution Width 14.9 % (13.2-15.2)
[2020-07-11 13:31] LABS: HCG Qualitative,Urine Negative (Negative)
[2020-07-11 13:33] LABS: Bilirubin,Urine NEG (Negative); Blood,Urine NEG (Negative); Color,Urine Straw (Yellow); Protein,Urine <15 mg/dL mg/dL (Negative); Urobilinogen,Urine < 2.0 mg/dL (<2.0)
[2020-07-11 13:36] LABS: INR 0.98 (0.87-1.13)
[2020-07-11 13:37] LABS: Partial Thromboplastin Time 27.1 Sec. (24.2-36.6)
[2020-07-11 13:44] LABS: BUN/Creatinine Ratio 22; Blood Urea Nitrogen 11 mg/dL (7-17); Calcium 9.3 mg/dL (8.4-10.2); Hemolysis Index 47
[2020-07-11 13:54] LABS: Amphetamine Screen,Urine Negative; Benzodiazepines Screen,Urine Negative; Cannabinoid Screen,Urine Negative; Methadone Screen,Urine Negative; Opiate Screen,Urine Negative
[2020-07-11 14:05] LABS: Cocaine Screen,Urine Positive
--- NOTE | 2020-07-11 14:29 | Cat Scan Report ---
CT BRAIN: 07/11/2020 INDICATION / CLINICAL INFORMATION: AMS. Trauma COMPARISON: 01/10/2020 FINDINGS: BRAIN/INTRACRANIAL STRUCTURES: Unenhanced CT images of the brain demonstrate no evidence of acute int racranial abnormality. Ventricles and sulci are normal in size and shape. There is no evidence of ischemic injury, hemorrhage, or mass. There are no abnormal extra-axial fluid collections. EXTRACRANIAL STRUCTURES: Unremarkable. IMPRESSION: No acute abnormality. There is been no significant change when compared to prior exam from 01/10/2020. All CT scans at this location are performed using dose reduction to ALARA by means of automated expos ure control. Signer Name: Lee Jimenez MD Signed: 07/11/2020 2:25 PM Workstation Name: [id number]
--- NOTE | 2020-07-11 14:35 | Cat Scan Report ---
CT LUMBAR SPINE: 07/11/2020 INDICATION / CLINICAL INFORMATION: Trauma. COMPARISON: Radiograph lumbar spine 05/24/2020 FINDINGS: CT images of the lumbar spine were obtained. Images are evaluated in the axial, coronal, and sagittal planes. Patient has had prior surgery and fusion of the upper lumbar and thoracic spine. Bilateral pedicle s crews are present at L2, L1, and T12. The upper extent of the surgical changes [facility]. There is a new compression involving the upper endplate of L3. There is been approximately 10% loss o f vertebral body height with irregularity seen along the upper endplate, including fragmentation of t he anterior aspect of the upper endplate as seen on sagittal plane. This was not present at the time of the radiograph from 05/24/2020. There is no evidence of retropulsion. There is no evidence of canal stenosis. PARASPINAL STRUCTURES: Unremarkable. IMPRESSION: Compression deformity of L3 as described above. The appearance would be consistent with recent or ac [place] compression fracture. It was not present on 05/24/2020. All CT scans at this location are performed using dose reduction to ALARA by means of automated expos ure control. Signer Name: Lee Jimenez MD Signed: 07/11/2020 2:30 PM Workstation Name: [id number]
--- NOTE | 2020-07-11 14:36 | Cat Scan Report ---
CT ABDOMEN AND PELVIS WITHOUT CONTRAST INDICATION / CLINICAL INFORMATION: Fall, pain. TECHNIQUE: Axial CT images were obtained through the abdomen and pelvis without IV contrast. All CT scans at [facility] location are performed using CT dose reduction for ALARA by means of automated exposure control. COMPARISON: None available. FINDINGS: LOWER CHEST: Hypoventilatory changes noted throughout bilateral lung shetty.Coronary artery calcifica tions are noted. GALLBLADDER: No significant abnormality. LIVER: Irregularity along the anterior inferior hepatic margin (series 2 image 78) is favored to repr esent motion artifact. BILE DUCTS: No significant abnormality. PANCREAS: No significant abnormality. SPLEEN: Small splenule. ADRENALS: No significant abnormality. RIGHT KIDNEY / URETER: No significant abnormality. LEFT KIDNEY / URETER: No significant abnormality. STOMACH / SMALL BOWEL: No significant abnormality. COLON: No significant abnormality. APPENDIX: No significant abnormality. PERITONEUM: No free fluid. No free air. No fluid collection. LYMPH NODES: No significant adenopathy. AORTA / ARTERIES: No significant abnormality. IVC / VEINS: No significant abnormality. URINARY BLADDER: No significant abnormality. REPRODUCTIVE ORGANS: Prior hysterectomy. ADDITIONAL FINDINGS: None. SKELETAL SYSTEM: Minimally displaced superior endplate fracture involving L3 vertebral body with mild compression of the superior endplate. Posterior spinal fixation is noted involving T10-L2 without ev idence of hardware loosening or failure. IMPRESSION: 1. Minimally displaced fracture involving the superior endplate of L3 anteriorly with minimal endplat e compression. 2. T10-L2 posterior spinal fixation without evidence of hardware loosening or failure. 3. Hepatic irregularity along the anterior inferior margin described above is favored to represent mo tion artifact. 4. Prior hysterectomy. Signer Name: Pasquale Gonzalez MD Signed: 07/11/2020 2:31 PM Workstation Name: [id number]
--- NOTE | 2020-07-11 15:08 | History and Physical Report ---
History of Present Illness Chief complaint: I keep having seizures History of present illness: 39 YO Female Personal Detention Resident with PSA, HTN, LDD, Seizure Disorder,Medication Noncompliance presents to ED for evaluation. Patient states that she has experienced multiple seizures over the past 1 month. Patient states that she ran out of her antiepileptic drugs over 1 month ago and has not been taking regular medication. Patient states that she has experienced "seizures all night". EMS was notified and upon arrival the patient was found to be in distress and subsequently transported to [facility] for further care and evaluation of the aforementioned symptoms. Patient seen and evaluated in the emergency department. All lab and imaging studies reviewed. Patient found to have symptoms consistent with status epilepticus. Patient placed in observation status and admitted to medical floor due to increased risk of worsening symptoms. Patient restarted on antiepileptic therapy. Patient denies fever, chills, chest pain, palpitations, productive cough, trauma, headache, recent ill contacts, or known exposure to COVID-19. No prior admission for review. All medication listed at time of admission has been reconciled. Past History Past Medical History: hypertension, seizures, other (See HPI) Past Surgical History: Other (Back surgery) Social history: single. denies: smoking, alcohol abuse, prescription drug abuse Family history: hypertension Medications and Allergies Allergies Allergy/AdvReac Type Severity Reaction Status Date / Time clarithromycin [From Biaxin] Allergy Hives Verified 05/24/20 12:20 prochlorperazine Allergy Vomiting Verified 05/24/20 12:20 [From Compazine] tramadol Allergy Seizure Verified 05/24/20 12:20 Home Medications Medication Instructions Recorded Confirmed Last Taken Type PHENobarbitaL [PHENobarbital] 60 mg PO BID 30 Days #60 tablet 05/05/20 Unknown Rx Active Meds: Active Medications Sodium Chloride (Nacl 0.9% 1000 Ml) 1,000 mls @ 125 mls/hr IV ONCE ONE Stop: 07/11/20 20:39 Last Admin: 07/11/20 13:19 Dose: 125 mls/hr Documented by: Review of Systems Constitutional: no weight loss, no weight gain, no fever, no sweats Ears, nose, mouth and throat: no ear pain, no ear discharge, no tinnitis, no decreased hearing Breasts: no change in shape, no swelling Cardiovascular: no chest pain, no orthopnea, no palpitations, no edema, no syncope Respiratory: no cough, no excessive sputum, no dyspnea on exertion Gastrointestinal: no abdominal pain, no nausea, no vomiting, no diarrhea Genitourinary Female: no pelvic pain, no flank pain, no menorrhagia, no urinary frequency, no urgency Rectal: no pain, no incontinence, no bleeding Musculoskeletal: no neck stiffness, no neck pain, no arm numbness/tingling, no low back pain, no morning stiffness, no muscle cramps Integumentary: no rash, no pruritis, no redness, no sores, no wounds Neurological: seizures, no head injury, no weakness, no numbness, no syncope, no tremors Psychiatric: no anxiety, no memory loss, no insomnia, no change in appetite, no disorientation Endocrine: no cold intolerance, no heat intolerance, no excessive thirst, no polyuria, no nocturia, no excessive sweating Hematologic/Lymphatic: no easy bruising, no easy bleeding, no lymphadenopathy Allergic/Immunologic: no allergic rhinitis, no persistent infections, no anaphylaxis, no angioedema Exam - Constitutional Vitals: Temp Pulse Resp BP Pulse Ox 98.5 F 84 16 153/101 97 07/11/20 11:35 07/11/20 11:35 07/11/20 11:35 07/11/20 11:35 07/11/20 11:35 General appearance: Present: mild distress - EENT Eyes: Present: PERRL ENT: hearing intact, clear oral mucosa - Neck Neck: Present: supple, normal ROM - Respiratory Respiratory effort: normal Respiratory: bilateral: CTA - Cardiovascular Heart Sounds: Present: S1 & S2. Absent: rub, click - Extremities Extremities: pulses symmetrical, No edema Peripheral Pulses: within normal limits - Abdominal General gastrointestinal: Present: soft, non-tender, non-distended, normal bowel sounds Female genitourinary: Present: normal - Integumentary Integumentary: Present: clear, warm, dry - Musculoskeletal Musculoskeletal: gait normal, strength equal bilaterally - Psychiatric Psychiatric: appropriate mood/affect, intact judgment & insight - Neurologic Neurologic: CNII-XII intact, moves all extremities HEART Score - HEART Score Troponin: Troponin T < 0.010 ng/mL (0.00-0.029) 07/11/20 13:02 Results - Labs CBC & Chem 7: 07/11/20 13:02 07/11/20 13:02 Labs: Abnormal lab results 07/11/20 07/11/20 07/11/20 Range/Units 12:45 13:02 13:02 WBC 17.6 H (4.5-11.0) K/mm3 Lymph % (Auto) 10.4 L (13.4-35.0) % Seg Neutrophils % 84.5 H (40.0-70.0) % Seg Neutrophils # 14.8 H (1.8-7.7) K/mm3 Creatinine 0.5 L (0.6-1.2) mg/dL Glucose 111 H (65-100) mg/dL Ammonia (25-60) umol/L Total Creatine Kinase 395 H (30-135) units/L TSH (0.270-4.200) mlU/mL Urine pH 8.0 H (5.0-7.0) Salicylates (2.8-20.0) mg/dL Acetaminophen (10.0-30.0) ug/mL 07/11/20 07/11/20 07/11/20 Range/Units 13:02 13:02 13:02 WBC (4.5-11.0) K/mm3 Lymph % (Auto) (13.4-35.0) % Seg Neutrophils % (40.0-70.0) % Seg Neutrophils # (1.8-7.7) K/mm3 Creatinine (0.6-1.2) mg/dL Glucose (65-100) mg/dL Ammonia 20.0 L (25-60) umol/L Total Creatine Kinase (30-135) units/L TSH (0.270-4.200) mlU/mL Urine pH (5.0-7.0) Salicylates < 0.3 L (2.8-20.0) mg/dL Acetaminophen 5.0 L (10.0-30.0) ug/mL 07/11/20 Range/Units 13:02 WBC (4.5-11.0) K/mm3 Lymph % (Auto) (13.4-35.0) % Seg Neutrophils % (40.0-70.0) % Seg Neutrophils # (1.8-7.7) K/mm3 Creatinine (0.6-1.2) mg/dL Glucose (65-100) mg/dL Ammonia (25-60) umol/L Total Creatine Kinase (30-135) units/L TSH 0.146 L (0.270-4.200) mlU/mL Urine pH (5.0-7.0) Salicylates (2.8-20.0) mg/dL Acetaminophen (10.0-30.0) ug/mL Assessment and Plan - Patient Problems (1) Status epilepticus Current Visit: Yes Status: Acute Plan to address problem: CT scan head, seizure precautions, Keppra therapy, supportive care. Neuro check, (2) Polysubstance abuse Current Visit: Yes Status: Acute Plan to address problem: Supportive care, outpatient substance dependence follow-up. (3) Accelerated hypertension Current Visit: Yes Status: Acute Plan to address problem: Monitor blood pressure every shift, continue medical management. (4) DVT prophylaxis Current Visit: Yes Status: Acute Plan to address problem: SCD to bilateral lower extremities while in bed, patient is ambulatory
[2020-07-11] MEDS ORDERED: HYDROcodone/ACETAMINOPHEN 5-325 MG TAB PO ONE (15:23)
[2020-07-11] MEDS: ASPIRIN 325 MG TAB PO SCH (15:38)
[2020-07-11] MEDS ORDERED: ONDANSETRON 4 MG/2 ML INJ IV PRN (15:50)
[2020-07-11] MEDS ORDERED: LORazepam 2 MG/ML VIAL IV PRN (15:53)
[2020-07-11] MEDS ORDERED: SODIUM CHLORIDE 0.9% 1000 ML 1,000 ML IV SCH (16:00)
--- NOTE | 2020-07-11 16:07 | XRay Report ---
RIGHT FOOT 2 VIEWS INDICATION: fall injury. COMPARISON: No relevant prior imaging study available. FINDINGS: No acute, displaced fracture or dislocation is seen. No soft tissue foreign bodies. No significant de generative changes. IMPRESSION: 1. No acute findings. Signer Name: Robbie Aiken MD Signed: 07/11/2020 4:02 PM Workstation Name: [id number]
[2020-07-11] MEDS ORDERED: MORPHINE 2 MG/1 ML INJ IV ONE (16:46)
[2020-07-11] MEDS ORDERED: MORPHINE 2 MG/1 ML INJ ONE (16:54)
[2020-07-11] MEDS ORDERED: PHENOBARBITAL 60 MG PO SCH (17:00)
[2020-07-11] MEDS ORDERED: LORazepam 2 MG/ML VIAL ONE (19:01)
[2020-07-11] MEDS ORDERED: MORPHINE 4 MG/1 ML INJ IV PRN (21:44)
[2020-07-11] MEDS: PHENobarbital 20 MG/5 ML ORAL LIQD PO SCH (21:51)
[2020-07-11] MEDS: MORPHINE 2 MG/1 ML INJ IV PRN (22:00)
[2020-07-12] MEDS: MORPHINE 2 MG/1 ML INJ IV PRN ×2 (03:42→10:00)
--- NOTE | 2020-07-12 09:07 | Progress Note ---
<CRISTINAYOHANANIGELTAIWO - Last Filed: 07/12/20 14:28> Assessment and Plan Patient seen at bedside-awake and alert and on room air She reports she had seizures back to back Advised to be compliance with treatment therapy for seizures. Patient voiced understanding-patient denies cp, sob, and n/v at the time of assessment. Elevated WBC -unknown cause-chest x-ray negative for acute finding. Started empiric oral abx-will order ECHO to r/o vegetation-pt has know history of substance use. - Patient Problems (1) Leukocytosis, unspecified Current Visit: Yes Status: Acute Qualifiers: Leukocytosis type: unspecified Qualified Code(s): D72.829 - Elevated white blood cell count, unspecified Plan to address problem: ? cause Temp 99.4-will start empiric antibiotics with Levaquin Blood culture-f/u with result UA negative for UTI Chest s-lpy-llezghxq for acute finding Monitor WBC Subjective Date of service: 07/12/20 Principal diagnosis: seizure Interval history: - Patient Problems (1) Status epilepticus Current Visit: Yes Status: Acute Plan to address problem: CT scan head-no acute finding Safety, fall and seizure precautions, Continue Keppra therapy, supportive care. Neuro check, Discussed medication compliance (2) Polysubstance abuse Current Visit: Yes Status: Acute Plan to address problem: Discussed substance use cessation Advised on outpatient substance dependence follow-up. (3) Accelerated hypertension Current Visit: Yes Status: Acute Plan to address problem: Monitor blood pressure every shift, continue medical management. (4) DVT prophylaxis Current Visit: Yes Status: Acute Plan to address problem: SCD to bilateral lower extremities while in bed, patient is ambulatory Objective - Constitutional Vitals: Vital Signs - 12hr 07/12/20 04:11 Temperature 99.4 F Pulse Rate 83 Respiratory 18 Rate Blood Pressure 164/98 O2 Sat by Pulse 96 Oximetry General appearance: Present: no acute distress, obese - EENT Eyes: PERRL, EOM intact ENT: hearing intact, clear oral mucosa Ears: bilateral: normal - Neck Neck: supple, normal ROM - Respiratory Respiratory effort: normal Respiratory: bilateral: CTA - Breasts Breasts: normal - Cardiovascular Heart rate: 83 Rhythm: regular Heart Sounds: Present: S1 & S2. Absent: gallop, rub Extremities: pulses intact, No edema, normal color, Full ROM - Gastrointestinal General gastrointestinal: Present: soft, non-tender, non-distended, normal bowel sounds - Genitourinary Female genitourinary: normal - Integumentary Integumentary: clear, warm, dry - Musculoskeletal Musculoskeletal: 1, strength equal bilaterally - Neurologic Neurologic: moves all extremities - Psychiatric Psychiatric: appropriate mood/affect, intact judgment & insight, memory intact, cooperative - Allied health notes Allied health notes reviewed: nursing - Labs CBC & Chem 7: 07/11/20 13:02 07/11/20 13:02 Labs: Abnormal lab results 07/11/20 07/11/20 07/11/20 Range/Units 12:45 13:02 13:02 WBC 17.6 H (4.5-11.0) K/mm3 Lymph % (Auto) 10.4 L (13.4-35.0) % Seg Neutrophils % 84.5 H (40.0-70.0) % Seg Neutrophils # 14.8 H (1.8-7.7) K/mm3 Creatinine 0.5 L (0.6-1.2) mg/dL Glucose 111 H (65-100) mg/dL Ammonia (25-60) umol/L Total Creatine Kinase 395 H (30-135) units/L TSH (0.270-4.200) mlU/mL Urine pH 8.0 H (5.0-7.0) Salicylates (2.8-20.0) mg/dL Acetaminophen (10.0-30.0) ug/mL 07/11/20 07/11/20 07/11/20 Range/Units 13:02 13:02 13:02 WBC (4.5-11.0) K/mm3 Lymph % (Auto) (13.4-35.0) % Seg Neutrophils % (40.0-70.0) % Seg Neutrophils # (1.8-7.7) K/mm3 Creatinine (0.6-1.2) mg/dL Glucose (65-100) mg/dL Ammonia 20.0 L (25-60) umol/L Total Creatine Kinase (30-135) units/L TSH (0.270-4.200) mlU/mL Urine pH (5.0-7.0) Salicylates < 0.3 L (2.8-20.0) mg/dL Acetaminophen 5.0 L (10.0-30.0) ug/mL 07/11/20 Range/Units 13:02 WBC (4.5-11.0) K/mm3 Lymph % (Auto) (13.4-35.0) % Seg Neutrophils % (40.0-70.0) % Seg Neutrophils # (1.8-7.7) K/mm3 Creatinine (0.6-1.2) mg/dL Glucose (65-100) mg/dL Ammonia (25-60) umol/L Total Creatine Kinase (30-135) units/L TSH 0.146 L (0.270-4.200) mlU/mL Urine pH (5.0-7.0) Salicylates (2.8-20.0) mg/dL Acetaminophen (10.0-30.0) ug/mL HEART Score - HEART Score Troponin: Troponin T < 0.010 ng/mL (0.00-0.029) 07/11/20 13:02 <YONATAN MITCHELL - Last Filed: 07/13/20 13:31> Assessment and Plan I saw and evaluated the patient. I agree with the findings and the plan of care as documented in the Nurse Practitioner's~note, with the following corrections and additions. Objective - Constitutional Vitals: Vital Signs - 12hr 07/13/20 07/13/20 05:47 11:51 Temperature 98.9 F 98.7 F Pulse Rate 86 80 Respiratory 20 22 Rate Blood Pressure 133/85 138/85 O2 Sat by Pulse 97 94 Oximetry - Labs CBC & Chem 7: 07/11/20 13:02 07/11/20 13:02 HEART Score - HEART Score Troponin: Troponin T < 0.010 ng/mL (0.00-0.029) 07/11/20 13:02
[2020-07-12] MEDS: ASPIRIN 325 MG TAB PO SCH (09:59)
[2020-07-12] MEDS: levoFLOXacin 500 MG TAB PO SCH (10:04)
--- NOTE | 2020-07-12 10:10 | XRay Report ---
CHEST 1 VIEW INDICATION / CLINICAL INFORMATION: r/o PNA. COMPARISON: 01/10/2020 FINDINGS: SUPPORT DEVICES: None. HEART / MEDIASTINUM: Stable. LUNGS / PLEURA: Low lung volumes without acute parenchymal or pleural abnormality. No pneumothorax. ADDITIONAL FINDINGS: No significant additional findings. IMPRESSION: 1. No acute findings. Signer Name: Davonte Weiss MD Signed: 07/12/2020 10:06 AM Workstation Name: [id number]
[2020-07-12] MEDS: ACETAMINOPHEN 325 MG TAB PO PRN (11:23)
[2020-07-12] MEDS: PHENobarbital 20 MG/5 ML ORAL LIQD PO SCH ×2 (13:39→22:23)
[2020-07-13] MEDS: MORPHINE 2 MG/1 ML INJ IV PRN ×2 (07:34→11:47)
[2020-07-13] MEDS: ACETAMINOPHEN 325 MG TAB PO PRN ×2 (09:24→17:11)
[2020-07-13] MEDS: ASPIRIN 325 MG TAB PO SCH (09:25)
[2020-07-13] MEDS: PHENobarbital 20 MG/5 ML ORAL LIQD PO SCH (09:25)
[2020-07-13] MEDS: levoFLOXacin 500 MG TAB PO SCH (09:25)
[2020-07-13 13:09] VITALS: BP 138/85
[2020-07-13] MEDS ORDERED: oxyCODONE /ACETAMINOPHEN 5-325MG TAB PO PRN (13:11)
--- NOTE | 2020-07-13 14:57 | Progress Note ---
<TAIWO JAIN - Last Filed: 07/13/20 14:53> Assessment and Plan Patient seen at bedside-awake and alert and on room air She reports she had seizures back to back Advised to be compliance with treatment therapy for seizures. Patient voiced understanding-patient denies cp, sob, and n/v at the time of assessment. Elevated WBC -unknown cause-chest x-ray negative for acute finding. Started empiric oral abx- ECHO to r/o vegetation-done no acute finding 07/13/20-patient is stable for d/c pending WBC result - Patient Problems (1) Leukocytosis, unspecified Status: Acute Qualifiers: Leukocytosis type: unspecified Qualified Code(s): D72.829 - Elevated white blood cell count, unspecified Plan to address problem: ? cause Temp 99.4-will start empiric antibiotics with Levaquin Blood culture-f/u with result UA negative for UTI Chest l-ugi-jykezmer for acute finding Repeat CBC-pending collection Subjective Date of service: 07/13/20 Principal diagnosis: seizure Interval history: - Patient Problems (1) Status epilepticus Current Visit: Yes Status: Acute Plan to address problem: CT scan head-no acute finding Safety, fall and seizure precautions, Continue Keppra therapy, supportive care. Neuro check, Discussed medication compliance (2) Polysubstance abuse Current Visit: Yes Status: Acute Plan to address problem: Discussed substance use cessation Advised on outpatient substance dependence follow-up. (3) Accelerated hypertension-stable Current Visit: Yes Status: Acute Plan to address problem: Monitor blood pressure every shift, continue medical management. (4) DVT prophylaxis Current Visit: Yes Status: Acute Plan to address problem: SCD to bilateral lower extremities while in bed, patient is ambulatory Objective - Constitutional Vitals: Vital Signs - 12hr 07/13/20 07/13/20 05:47 11:51 Temperature 98.9 F 98.7 F Pulse Rate 86 80 Respiratory 20 22 Rate Blood Pressure 133/85 138/85 O2 Sat by Pulse 97 94 Oximetry General appearance: Present: no acute distress, well-nourished - EENT Eyes: PERRL, EOM intact ENT: hearing intact, clear oral mucosa Ears: bilateral: normal - Neck Neck: supple, normal ROM - Respiratory Respiratory effort: normal Respiratory: bilateral: CTA - Breasts Breasts: normal - Cardiovascular Rhythm: regular Heart Sounds: Present: S1 & S2. Absent: gallop, rub Extremities: pulses intact, No edema, normal color, Full ROM - Gastrointestinal General gastrointestinal: Present: soft, non-tender, non-distended, normal bowel sounds - Genitourinary Female genitourinary: normal - Integumentary Integumentary: clear, warm, dry - Musculoskeletal Musculoskeletal: 1, strength equal bilaterally - Neurologic Neurologic: moves all extremities - Psychiatric Psychiatric: memory intact, appropriate mood/affect, intact judgment & insight - Allied health notes Allied health notes reviewed: nursing - Labs CBC & Chem 7: 07/11/20 13:02 07/11/20 13:02 HEART Score - HEART Score Troponin: Troponin T < 0.010 ng/mL (0.00-0.029) 07/11/20 13:02 <YONATAN MITCHELL - Last Filed: 07/14/20 07:07> Assessment and Plan I saw and evaluated the patient. I agree with the findings and the plan of care as documented in the Nurse Practitioner's~note, with the following corrections and additions. Objective - Labs CBC & Chem 7: 07/13/20 15:00 07/11/20 13:02 Labs: Abnormal lab results 07/13/20 Range/Units 15:00 Seg Neutrophils % 76.5 H (40.0-70.0) % Seg Neutrophils # 8.2 H (1.8-7.7) K/mm3 HEART Score - HEART Score Troponin: Troponin T < 0.010 ng/mL (0.00-0.029) 07/11/20 13:02
[2020-07-13 15:16] LABS: Basophils # (Auto) 0.1 K/mm3 (0.0-0.1); Basophils % (Auto) 0.8 % (0.0-1.8); Eosinophils # (Auto) 0.1 K/mm3 (0.0-0.4); Eosinophils % (Auto) 0.8 % (0.0-4.3); Hematocrit 40.4 % (30.3-42.9); Hemoglobin 13.9 gm/dl (10.1-14.3); Lymphocytes # (Auto) 1.6 K/mm3 (1.2-5.4); Lymphocytes % (Auto) 15.4 % (13.4-35.0); Mean Corpuscular HGB Conc 34 % (30-34); Mean Corpuscular Volume 83 fl (79-97); Monocytes # (Auto) 0.7 K/mm3 (0.0-0.8); Monocytes % (Auto) 6.5 % (0.0-7.3); Platelet Count 253 K/mm3 (140-440); Red Blood Count 4.89 M/mm3 (3.65-5.03); Red Cell Distribution Width 14.8 % (13.2-15.2)
--- NOTE | 2020-07-13 16:33 | Discharge Summary ---
<TAIWO JAIN - Last Filed: 07/13/20 16:34> Providers - Providers Date of Admission: 07/11/20 15:50 Date of discharge: 07/13/20 Attending physician: YONATAN MITCHELL MD Primary care physician: CLINICAL OFFICE TECHNICIAN Hospitalization Condition: Stable Hospital course: Assessment and Plan (1) Leukocytosis, unspecified:resolved ? cause Temp 99.4-will start empiric antibiotics with Levaquin UA negative for UTI Chest i-dbn-xrjthqmf for acute finding Repeat CBC-Normal (1) Status epilepticus likely 2/[address] scan head-no acute finding Safety, fall and seizure precautions, started on Keppra therapy, supportive care. Neuro check, Discussed medication compliance (2) Polysubstance abuse Discussed substance use cessation Advised on outpatient substance dependence follow-up. (3) Accelerated hypertension-resolved Monitor blood pressure every shift, Patient seen at bedside-awake and alert and on room air She reports she had seizures back to back Advised to be compliance with treatment therapy for seizures. Patient voiced understanding-patient denies cp, sob, and n/v at the time of assessment. Elevated WBC -unknown cause-chest x-ray negative for acute finding. Started empiric oral abx- ECHO to r/o vegetation-done no acute finding 07/13/20-repeat WBC -normal. patient is discharge Disposition: TO HOME OR SELFCARE - Discharge Diagnoses (1) Leukocytosis, unspecified Status: Acute Qualifiers: Leukocytosis type: unspecified Qualified Code(s): D72.829 - Elevated white blood cell count, unspecified Comment: resolved Core Measure Documentation - Palliative Care Palliative Care/ Comfort Measures: Not Applicable - Core Measures Any of the following diagnoses?: none Exam - Constitutional Vitals: Temp Pulse Resp BP Pulse Ox 98.7 F 80 22 138/85 94 07/13/20 11:51 07/13/20 11:51 07/13/20 11:51 07/13/20 11:51 07/13/20 11:51 General appearance: Present: no acute distress, well-nourished - EENT Eyes: Present: PERRL ENT: hearing intact, clear oral mucosa - Neck Neck: Present: supple, normal ROM - Respiratory Respiratory effort: normal Respiratory: bilateral: CTA - Cardiovascular Heart Sounds: Present: S1 & S2. Absent: rub, click - Extremities Extremities: pulses symmetrical, No edema Peripheral Pulses: within normal limits - Abdominal General gastrointestinal: Present: soft, non-tender, non-distended, normal bowel sounds Female genitourinary: Present: normal - Integumentary Integumentary: Present: clear, warm, dry - Musculoskeletal Musculoskeletal: strength equal bilaterally, other (reports back pain) - Psychiatric Psychiatric: appropriate mood/affect, intact judgment & insight - Neurologic Neurologic: CNII-XII intact, moves all extremities - Allied Health Allied health notes reviewed: nursing, PT Plan Follow up with: PRIMARY CARE, [Primary Care Provider] - 3-5 Days Prescriptions: PHENobarbitaL [PHENobarbital] 50 mg PO BID 30 Days #60 tablet <YONATAN MITCHELL - Last Filed: 07/14/20 07:05> Providers - Providers Date of Admission: 07/11/20 15:50 Attending physician: YONATAN MITCHELL MD Primary care physician: CLINICAL OFFICE TECHNICIAN Hospitalization Hospital course: I saw and evaluated the patient. I agree with the findings and the plan of care as documented in the Nurse Practitioner's~note, with the following corrections and additions. Patient advised to follow with Neurologist in 1-7 days, also advised against driving based on [place] law. She states she does not drive. Time spent for discharge: 35 mins Exam - Constitutional Vitals: Temp Pulse Resp BP Pulse Ox 98.7 F 80 22 138/85 94 07/13/20 11:51 07/13/20 11:51 07/13/20 11:51 07/13/20 11:51 07/13/20 11:51
== END 2020-07-13 18:12 | disposition home or self-care (01) ==
LOC: ED 11:27 → 3A 15:50
PROVIDERS: ADMIT Internal Medicine; ATTEND Internal Medicine
DX: G40.901 Epilepsy, unspecified, not intractable, with status epilepticus (principal); F19.10 Other psychoactive substance abuse, uncomplicated; F10.20 Alcohol dependence, uncomplicated; F14.10 Cocaine abuse, uncomplicated; I10 Essential (primary) hypertension; D72.829 Elevated white blood cell count, unspecified; R93.5 Abnormal findings on diagnostic imaging of other abdominal regions, including retroperitoneum; Z98.890 Other specified postprocedural states; Z86.73 Personal history of transient ischemic attack (TIA), and cerebral infarction without residual deficits; Z79.899 Other long term (current) drug therapy
CPT/HCPCS: 36415; 70450; 71045; 72131; 73620; 74176; 80048; 80307; 81001; 81025; 82140; 82550; 84439; 84443; 84481; 84484; 85025; 85610; 85730; 93005; 93306; 96361; 96374; 96375; 96376; 99284; G0378; J1885; J1953; J2060; J2270; J2405; J7030; 80320; G0480

== ENCOUNTER 2020-07-14 17:17 | Emergency (ER) | payer MEDICARE ==
[2020-07-14 17:19] VITALS: BP 127/82
--- NOTE | 2020-07-14 18:23 | Emergency Department Report ---
ED Back Pain/Injury HPI - General Chief Complaint: Back Pain/Injury Stated Complaint: BACK PAIN Time Seen by Provider: 07/14/20 18:03 Source: patient Limitations: No Limitations - History of Present Illness Initial Comments: This is a 39-year-old female nontoxic, well nourished in appearance, no acute signs of distress presents to the ED with c/o of lower back pain. Patient st ated that she was DC this morning from and was not told her of her lumbar spine CT results. Patient denies any new injuries or trauma. Denies any bladder or bowel instability. Patient denies any urinary symptoms. Denies any fever, chills, nausea, vomiting, headache, stiff neck, chest pain or shortness of breath. Patient denies any numbness or tingling. Denies any allergies. MD Complaint: back pain -: days(s) Similar Symptoms Previously: Yes Radiation: none Severity: mild Severity scale (0 -10): 3 Quality: aching Consistency: intermittent Improves With: immobilization, sitting upright Worsens With: movement, walking Context: fall Associated Symptoms: denies other symptoms. denies: confusion, weakness, chest pain, numbness, difficulty walking, cough, difficulty urinating, diaphoresis, incontinence, fever/chills, constipation, headaches, abdominal pain, loss of appetite, malaise, nausea/vomiting, rash, seizure, shortness of breath, syncope - Related Data Previous Rx's Medication Instructions Recorded Last Taken Type PHENobarbitaL [PHENobarbital] 50 mg PO BID 30 Days #60 tablet 07/13/20 Unknown Rx Allergies Allergy/AdvReac Type Severity Reaction Status Date / Time clarithromycin [From Biaxin] Allergy Hives Verified 05/24/20 12:20 prochlorperazine Allergy Vomiting Verified 05/24/20 12:20 [From Compazine] tramadol Allergy Seizure Verified 05/24/20 12:20 ED Review of Systems ROS: Stated complaint: BACK PAIN Other details as noted in HPI Comment: All other systems reviewed and negative Constitutional: denies: chills, fever Eyes: denies: eye pain, eye discharge, vision change ENT: denies: ear pain, throat pain Respiratory: denies: cough, shortness of breath, wheezing Cardiovascular: denies: chest pain, palpitations Endocrine: no symptoms reported Gastrointestinal: denies: abdominal pain, nausea, diarrhea Genitourinary: denies: urgency, dysuria, discharge Musculoskeletal: back pain. denies: joint swelling, arthralgia Skin: denies: rash, lesions Neurological: denies: headache, weakness, paresthesias Psychiatric: denies: anxiety, depression Hematological/Lymphatic: denies: easy bleeding, easy bruising ED Past Medical Hx - Past Medical History Previous Medical History?: Yes Hx Hypertension: Yes Hx CVA: Yes (TIA) Hx Congestive Heart Failure: No Hx Diabetes: No Hx Seizures: Yes Hx Asthma: Yes Hx COPD: No Additional medical history: Denies cardiac history. Denies history of VTE or previous anticoagulation. Denies history of diabetes. - Surgical History Past Surgical History?: Yes Additional Surgical History: back - Social History Smoking Status: Never Smoker Substance Use Type: None - Medications Home Medications: Home Medications Medication Instructions Recorded Confirmed Last Taken Type PHENobarbitaL [PHENobarbital] 50 mg PO BID 30 Days #60 tablet 07/13/20 Unknown Rx ED Physical Exam - General Limitations: No Limitations General appearance: alert, in no apparent distress - Head Head exam: Present: atraumatic, normocephalic - Eye Eye exam: Present: normal appearance - Neck Neck exam: Present: normal inspection, full ROM. Absent: tenderness, meningismus, lymphadenopathy - Respiratory Respiratory exam: Present: normal lung sounds bilaterally. Absent: respiratory distress, wheezes, rales, rhonchi, stridor, chest wall tenderness, accessory muscle use, decreased breath sounds, prolonged expiratory - Cardiovascular Cardiovascular Exam: Present: regular rate, normal rhythm, normal heart sounds. Absent: bradycardia, tachycardia, irregular rhythm, systolic murmur, diastolic murmur, rubs, gallop - GI/Abdominal GI/Abdominal exam: Present: soft, normal bowel sounds. Absent: distended, tenderness, guarding, rebound, rigid, diminished bowel sounds - Extremities Exam Extremities exam: Present: normal inspection, full ROM - Back Exam Back exam: Present: normal inspection, full ROM, paraspinal tenderness (lumbar paraspinal). Absent: tenderness, CVA tenderness (L), muscle spasm, vertebral tenderness, rash noted - Expanded Back Exam Expanded Back exam: Absent: saddle anesthesia Back exam: Negative Straight Leg Raising: Right, Left - Neurological Exam Neurological exam: Present: alert, oriented X3, normal gait - Psychiatric Psychiatric exam: Present: normal affect, normal mood - Skin Skin exam: Present: warm, dry, intact, normal color. Absent: rash ED Course Vital Signs 07/14/20 17:18 Temperature 97.8 F Pulse Rate 88 Respiratory 16 Rate Blood Pressure 127/82 [Right] O2 Sat by Pulse 98 Oximetry - Reevaluation(s) Reevaluation #1: 07/14/20 18:22 Patient is speaking in full sentences with no signs of distress noted. - Consultations Consultation #1: 07/14/20 18:[address] Vasques about pateint history, physical exam and lumbar CT results from 07/11 and patient can be discharged with follow-up. ED Medical Decision Making - Radiology Data Referring Physician: LOUIS MAYO Patient Name: CARLOS LOPEZ Date of : 1980 Sex: Female Report Date: 2020-07-11 Report Status: [place] [address] Cat Scan Report Signed Patient: CARLOS LOPEZ MR#: [id number] : 1980 Acct:[id number] Age/Sex: 39 / F ADM Date: 07/11/20 Loc: ED Attending Dr: Ordering Physician: LOUIS MAYO MD Date of Service: 07/11/20 Procedure(s): CT lumbar spine wo con Accession Number(s): [id number] cc: LOUIS MAYO MD CT LUMBAR SPINE: 07/11/2020 INDICATION / CLINICAL INFORMATION: Trauma. COMPARISON: Radiograph lumbar spine 05/24/2020 FINDINGS: CT images of the lumbar spine were obtained. Images are evaluated in the axial, coronal, and sagittal planes. Patient has had prior surgery and fusion of the upper lumbar and thoracic spine. Bilateral pedicle screws are present at L2, L1, and T12. The upper extent of the surgical changes are not included on this lumbar spine protocol. There is a new compression involving the upper endplate of L3. There is been approximately 10% loss of vertebral body height with irregularity seen along the upper endplate, including fragmentation of the anterior aspect of the upper endplate as seen on sagittal plane. This was not present at the time of the radiograph from 05/24/2020. There is no evidence of retropulsion. There is no evidence of canal stenosis. PARASPINAL STRUCTURES: Unremarkable. IMPRESSION: Compression deformity of L3 as described above. The appearance would be consistent with recent or acute compression fracture. It was not present on 05/24/2020. All CT scans at this location are performed using dose reduction to ALARA by means of automated exposure control. Signer Name: Lee Jimenez MD Signed: 07/11/2020 2:30 PM Workstation Name: [id number] Transcribed By: AO Dictated By: Lee Jimenez MD Electronically Authenticated By: Lee Jimenez MD Signed Date/Time: 07/11/201429 DD/ 24 TD/TT: - Medical Decision Making This is a 39-year-old female that presents with 10% L3 fracture. Patient is stable was examined by me. There is no spinal tenderness. There is no cauda equina syndrome during examination. No bladder or bowel instability. Patient has hx of polysubstance abuse and educated patient on OTC medications for pain control. Patient was referred to Follow-up with a orthopedic doctor in 2 days or if symptoms worsen and continue return to emergency room as soon as possible. At time of discharge, the patient does not seem toxic or ill in appearance. No acute signs of distress noted. Patient agrees to discharge treatment plan of care. No further questions noted by the patient. Critical care attestation.: If time is entered above; I have spent that time in minutes in the direct care of this critically ill patient, excluding procedure time. ED Disposition Clinical Impression: Lumbar vertebral fracture Qualifiers: Encounter type: initial encounter Lumbar vertebra fracture level: L3 Fracture type: closed Fracture morphology: unspecified fracture morphology Qualified Code(s): S32.039A - Unspecified fracture of third lumbar vertebra, initial encounter for closed fracture Disposition: Z-07 MED SCREENING EXAM-LEFT Is pt being admited?: No Does the pt Need Aspirin: No Condition: Stable Instructions: Thoracolumbar Fracture (ED) Additional Instructions: Follow-up with a orthopedic doctor in 2 days or if symptoms worsen and continue return to emergency room as soon as possible. Referrals: FREDRICK SIGALA MD [Staff Physician] - 07/16/20 PRIMARY CAREMD [Referring] - 07/16/20
== END 2020-07-14 18:47 | disposition left against medical advice (07) ==
LOC: ED 17:17
DX: M54.9 Dorsalgia, unspecified (principal); Z53.21 Procedure and treatment not carried out due to patient leaving prior to being seen by health care provider

== ENCOUNTER 2020-08-26 16:45 | Emergency (ER) | payer MEDICARE ==
[2020-08-26] MEDS ORDERED: SODIUM CHLORIDE 0.9% 1000 ML 1,000 ML IV ONE ×2 (17:50)
[2020-08-26] MEDS ORDERED: charcoal activated SOLUTION 25 GM/120 ML PO ONE (17:50)
--- NOTE | 2020-08-26 17:50 | Emergency Department Report ---
<FRANKLYN CORTES - Last Filed: 08/27/20 04:13> History of Present Illness - General Chief Complaint: Psych Stated Complaint: SUICIDAL Time Seen by Provider: 08/26/20 17:32 - Related Data Previous Rx's Medication Instructions Recorded Last Taken Type PHENobarbitaL [PHENobarbital] 50 mg PO BID 30 Days #60 tablet 07/13/20 Unknown Rx Allergies Allergy/AdvReac Type Severity Reaction Status Date / Time clarithromycin [From Biaxin] Allergy Hives Verified 05/24/20 12:20 prochlorperazine Allergy Vomiting Verified 05/24/20 12:20 [From Compazine] tramadol Allergy Seizure Verified 05/24/20 12:20 ED Past Medical Hx - Medications Home Medications: Home Medications Medication Instructions Recorded Confirmed Last Taken Type PHENobarbitaL [PHENobarbital] 50 mg PO BID 30 Days #60 tablet 07/13/20 Unknown Rx ED Course - Reevaluation(s) Reevaluation #2: 08/27/20 04:13 Still awaiting urine it was initially ordered at 6:16 PM and marked as collected. Lab said they had not received order.. I canceled previous ordered from previous shift and reordered urine and advised nurse to collect a urine sample ED Medical Decision Making - Lab Data Result diagrams: 08/26/20 17:34 08/26/20 17:34 ED Disposition Clinical Impression: Psychiatric disturbance Disposition: [id number] OP ADMIT IP TO THIS HOSP Condition: Stable Additional Instructions: Patient is medically clear for psychiatric evaluation <GUILLAUME GARCIA - Last Filed: 08/27/20 10:42> ED Medical Decision Making - Lab Data Result diagrams: 08/26/20 17:34 08/26/20 17:34 ED Disposition Is pt being admited?: Yes <RONNIE SMITH - Last Filed: 08/27/20 16:07> History of Present Illness - General Source: patient, EMS Mode of arrival: Wheelchair Limitations: No Limitations - History of Present Illness Initial Comments: Chief complaint: "I have chronic pain. I am just in so much pain that I want to ." HPI: This is a 39-year-old female with history of hypertension, asthma, seizure disorder, TIA, chronic back pain, bipolar disorder, schizophrenia, previous suicide attempts who presents via EMS for drug overdose intentional. Patient took 1.2 mg Xanax, 40 mg of Ambien, amlodipine 10 mg tablets unknown amount, hydrochlorothiazide 12.5 mg unknown amount, potassium 20 mEq. Patient ingested these medications intentionally 30 to 35 minutes before her arrival to the emergency department. She states that she was recently released from pain management clinic in December. She also has been unable to receive transfer to Suboxone clinic. Her last dose of Suboxone was in May. She is currently living at a rooming house. She is severely depressed due to chronic pain and lack of pain management. She stated that Suboxone therapy did hurt. Oxycodone and Xanax helped much better to manage her chronic pain. She has had multiple back surgeries. She also has hip pain from previous fracture. She has 2 relatives in [facility]. Mother is dying of cirrhosis. Sister also diagnosed with cirrhosis. She has limited social support. Complaint: intentional overdose -: Sudden, This afternoon How Overdose Was Discovered: other (Called [facility]) Context: Intentional Overdose: other (Severe chronic pain) Associated Symptoms: depression Treatments Prior to Arrival: other (EMS transport) ED Review of Systems ROS: Stated complaint: SUICIDAL Other details as noted in HPI Comment: All other systems reviewed and negative Constitutional: denies: fever, malaise Respiratory: denies: cough, shortness of breath Cardiovascular: denies: chest pain Gastrointestinal: denies: abdominal pain Musculoskeletal: back pain ED Past Medical Hx - Past Medical History Previous Medical History?: Yes Hx Hypertension: Yes Hx CVA: Yes (TIA) Hx Congestive Heart Failure: No Hx Diabetes: No Hx Seizures: Yes Hx Asthma: Yes Hx COPD: No Additional medical history: Denies cardiac history. Denies history of VTE or previous anticoagulation. Denies history of diabetes. - Surgical History Past Surgical History?: Yes Additional Surgical History: back, Right hip fracture - Social History Smoking Status: Current Every Day Smoker Substance Use Type: Marijuana ED Physical Exam - General Limitations: No Limitations General appearance: alert, in no apparent distress - Head Head exam: Present: atraumatic, normocephalic - Eye Eye exam: Present: normal appearance - ENT ENT exam: Present: mucous membranes moist - Neck Neck exam: Present: normal inspection, full ROM - Respiratory Respiratory exam: Present: normal lung sounds bilaterally. Absent: respiratory distress, wheezes, rhonchi - Cardiovascular Cardiovascular Exam: Present: regular rate, normal rhythm, normal heart sounds. Absent: systolic murmur, diastolic murmur, rubs, gallop - GI/Abdominal GI/Abdominal exam: Present: soft, normal bowel sounds. Absent: distended, t enderness, guarding, rebound - Extremities Exam Extremities exam: Present: normal inspection - Neurological Exam Neurological exam: Present: alert, oriented X3 - Psychiatric Psychiatric exam: Present: normal affect, depressed - Skin Skin exam: Present: warm, dry, intact, normal color. Absent: rash ED Course Vital Signs 08/26/20 08/26/20 08/26/20 17:32 17:33 19:30 Temperature 97.4 F L 98.7 F Pulse Rate 111 H 97 H Respiratory 19 16 Rate Blood Pressure 113/76 Blood Pressure 143/109 [Left] O2 Sat by Pulse 99 97 Oximetry 08/26/20 08/26/20 08/26/20 19:35 19:36 20:00 Temperature 98.7 F Pulse Rate 101 H 96 H Respiratory 18 15 21 Rate Blood Pressure 117/77 Blood Pressure 132/89 [Left] O2 Sat by Pulse 95 97 Oximetry 08/26/20 08/26/20 08/26/20 20:06 20:30 21:00 Temperature Pulse Rate 101 H 101 H Respiratory 18 25 H 27 H Rate Blood Pressure 132/89 128/86 Blood Pressure [Left] O2 Sat by Pulse Oximetry 08/26/20 08/26/20 08/26/20 22:00 22:30 23:00 Temperature Pulse Rate 101 H 106 H 95 H Respiratory 30 H 19 24 Rate Blood Pressure 124/89 124/67 114/72 Blood Pressure [Left] O2 Sat by Pulse 95 94 Oximetry 08/26/20 08/27/20 08/27/20 23:30 00:00 00:30 Temperature Pulse Rate 96 H 88 94 H Respiratory 22 21 27 H Rate Blood Pressure 112/67 125/77 113/76 Blood Pressure [Left] O2 Sat by Pulse 94 99 94 Oximetry 08/27/20 08/27/20 08/27/20 01:00 01:30 02:00 Temperature Pulse Rate 93 H 92 H 91 H Respiratory 26 H 24 26 H Rate Blood Pressure 131/90 121/93 140/96 Blood Pressure [Left] O2 Sat by Pulse 92 92 95 Oximetry 08/27/20 08/27/20 08/27/20 03:00 03:30 04:00 Temperature Pulse Rate 91 H 91 H 86 Respiratory 24 22 27 H Rate Blood Pressure 122/70 123/86 127/88 Blood Pressure [Left] O2 Sat by Pulse 96 96 Oximetry 08/27/20 08/27/20 08/27/20 04:30 05:00 05:30 Temperature Pulse Rate 98 H 95 H 90 Respiratory 33 H 24 27 H Rate Blood Pressure 127/84 132/95 134/92 Blood Pressure [Left] O2 Sat by Pulse 96 95 Oximetry 08/27/20 08/27/20 06:00 09:13 Temperature 97.6 F Pulse Rate 88 60 Respiratory 20 20 Rate Blood Pressure 132/90 Blood Pressure 141/107 [Left] O2 Sat by Pulse 98 98 Oximetry - Reevaluation(s) Reevaluation #1: 08/27/20 00:16 After 8 hours of observation, patient did not exhibit cardiovascular stability. Patient will be continued to be monitored on surveillance monitor in the emergency department. ED Medical Decision Making - Lab Data Result diagrams: 08/26/20 17:34 08/27/20 12:42 - EKG Data -: EKG Interpreted by Me EKG shows normal: sinus rhythm, axis, QRS complexes, ST-T waves Rate: normal - EKG Data 08/26/20 17:58 EKG obtained 1751 EKG interpreted by id Rate 95 bpm normal axis normal TN interval prolonged QTC no ST elevation nonischemic T wave pattern - Medical Decision Making Intentional drug overdose several medications including Xanax amlodipine Ambien hydrochlorothiazide, potassium. I immediately spoke with [facility] specialist who recommended sorbital and charcoal. Largest concern is amlodipine causing cardiovascular instability. IV fluid therapy was started according to toxicology specialist recommendation. She also recommended 18 hours of observation.Patient will be medically clear at 10 AM on 08/27/2020 if [facility] With adverse effects of ingestion. Serum toxicology screen negative for coingestions such as salicylates acetaminophen blood alcohol alcohol CBC reveals mild leukocytosis nonspecific. Patient does not exhibit signs of infection. Patient has hypokalemia mild 3.1. Due to reported ingestion of potassium tablets will not replete potassium at this time. Patient appears to have severe opioid dependence. She has continuously asked for opioid type pain medicine that is not ibuprofen or Tylenol. I have explained to her on several occasions that pain medicine at this juncture would be extremely dangerous considering her multiple ingestions. She persistently asks for pain medication in spite education and redirection. Critical Care Time: Yes Critical care time in (mins) excluding proc time.: 40 Critical care attestation.: If time is entered above; I have spent that time in minutes in the direct care of this critically ill patient, excluding procedure time. 40 minutes of critical care time excluding procedures were used in the care of the patient. I came immediately to the bedside upon patient's arrival. . I discussed treatment plan with the nursing team members. I reviewed electronic record. I spoke with [place] Po[facility] control specialists. I reviewed electronic record. I immediately ordered charcoal with sorbitol according to toxicology recommendations. Patient required frequent reassessments. I was concerned for cardiovascular instability and respiratory depression. During the initial resuscitation I was unable to attend to other patients. ED Disposition Is pt being admited?: No Does the pt Need Aspirin: No
[2020-08-26] MEDS ORDERED: ONDANSETRON 4 MG/2 ML INJ IV ONE ×2 (17:51→22:35)
[2020-08-26] MEDS ORDERED: CHARCOAL/SORBITOL SOLUTION 25 GM/120 ML PO ONE (17:52)
[2020-08-26 18:07] LABS: Blood Urea Nitrogen 17 mg/dL (7-17); Calcium 9.6 mg/dL (8.4-10.2); Hemolysis Index 7
[2020-08-26 18:13] LABS: BUN/Creatinine Ratio 34
[2020-08-26 18:21] LABS: Basophils # (Auto) 0.1 K/mm3 (0.0-0.1); Eosinophils # (Auto) 0.5 K/mm3 (0.0-0.4); Eosinophils % (Auto) 3.9 % (0.0-4.3); Hematocrit 38.9 % (30.3-42.9); Hemoglobin 13.4 gm/dl (10.1-14.3); Lymphocytes # (Auto) 2.9 K/mm3 (1.2-5.4); Lymphocytes % (Auto) 24.3 % (13.4-35.0); Mean Corpuscular HGB Conc 35 % (30-34); Mean Corpuscular Volume 83 fl (79-97); Monocytes # (Auto) 0.6 K/mm3 (0.0-0.8); Monocytes % (Auto) 4.9 % (0.0-7.3); Platelet Count 315 K/mm3 (140-440); Red Blood Count 4.68 M/mm3 (3.65-5.03); Red Cell Distribution Width 14.9 % (13.2-15.2)
[2020-08-26] MEDS ORDERED: KETOROLAC 30 MG/1 ML INJ ONE (19:31)
[2020-08-26] MEDS ORDERED: KETOROLAC 30 MG/1 ML INJ IV ONE (19:34)
[2020-08-26] MEDS ORDERED: ONDANSETRON 4 MG/2 ML INJ ONE (22:33)
[2020-08-27 07:09] LABS: Bilirubin,Urine NEG (Negative); Blood,Urine NEG (Negative); Color,Urine Straw (Yellow); Protein,Urine <15 mg/dL mg/dL (Negative); Urobilinogen,Urine < 2.0 mg/dL (<2.0)
[2020-08-27 07:16] LABS: Amphetamine Screen,Urine PRESUMPTIVE NEGATIVE; Benzodiazepines Screen,Urine PRESUMPTIVE POSITIVE; Cannabinoid Screen,Urine PRESUMPTIVE NEGATIVE; Cocaine Screen,Urine PRESUMPTIVE NEGATIVE; Methadone Screen,Urine PRESUMPTIVE NEGATIVE; Opiate Screen,Urine PRESUMPTIVE NEGATIVE
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
[2020-08-27 09:14] VITALS: BP 141/107
[2020-08-27] MEDS ORDERED: ACETAMINOPHEN 325 MG TAB PO PRN (09:53)
[2020-08-27 14:21] LABS: BUN/Creatinine Ratio 25; Blood Urea Nitrogen 10 mg/dL (7-17); Calcium 9.2 mg/dL (8.4-10.2); Hemolysis Index 19
== END 2020-08-27 17:05 ==
LOC: ED 16:48
DX: F99 Mental disorder, not otherwise specified (principal); I10 Essential (primary) hypertension; J45.909 Unspecified asthma, uncomplicated; F17.200 Nicotine dependence, unspecified, uncomplicated; F12.10 Cannabis abuse, uncomplicated; Z79.899 Other long term (current) drug therapy; Z88.8 Allergy status to other drugs, medicaments and biological substances
CPT/HCPCS: 36415; 80048; 80307; 81001; 83735; 84703; 85025; 93005; 96361; 96374; 96375; 96376; 99291; J1885; J2405; J7030; 80320; G0480

== ENCOUNTER 2020-09-11 11:47 | Inpatient (IN) | payer MEDICARE ==
[2020-09-11] MEDS ORDERED: SODIUM CHLORIDE 0.9% 1000 ML 1,000 ML IV ONE (12:38)
--- NOTE | 2020-09-11 12:38 | Emergency Department Report ---
ED Altered Mental Status HPI - General Chief Complaint: Altered Mental Status Stated Complaint: NONVERBAL PUI?: No Time Seen by Provider: 09/11/20 12:35 Source: RN/MD, EMS - History of Present Illness Initial Comments: Patient is a 39-year-old female with history of seizures. Unsure if patient is on Keppra or phenobarbital as patient was recently here in the hospital and discharged on Keppra. She presents to the emergency department concern for altered mental status and possible drug ingestion. The half-way she is is concerned that the patient could have overdosed on medications. EMS does not provide us with the number for her half-way nor a list of the medications that she could have overdosed on. She has been acting abnormally. She does not speak or give any additional history at this time. - Related Data Previous Rx's Medication Instructions Recorded Last Taken Type PHENobarbitaL [PHENobarbital] 50 mg PO BID 30 Days #60 tablet 07/13/20 Unknown Rx Allergies Allergy/AdvReac Type Severity Reaction Status Date / Time clarithromycin [From Biaxin] Allergy Hives Verified 05/24/20 12:20 prochlorperazine Allergy Vomiting Verified 05/24/20 12:20 [From Compazine] tramadol Allergy Seizure Verified 05/24/20 12:20 ED Review of Systems ROS: Stated complaint: NONVERBAL Other details as noted in HPI Comment: Unobtainable due to pts medical conditions ED Past Medical Hx - Past Medical History Hx Hypertension: Yes Hx CVA: Yes (TIA) Hx Congestive Heart Failure: No Hx Diabetes: No Hx Seizures: Yes Hx Asthma: Yes Hx COPD: No Additional medical history: Denies cardiac history. Denies history of VTE or previous anticoagulation. Denies history of diabetes. - Surgical History Additional Surgical History: back, Right hip fracture - Social History Smoking Status: Current Every Day Smoker Substance Use Type: Marijuana - Medications Home Medications: Home Medications Medication Instructions Recorded Confirmed Last Taken Type PHENobarbitaL [PHENobarbital] 50 mg PO BID 30 Days #60 tablet 07/13/20 Unknown Rx ED Course Vital Signs 09/11/20 09/11/20 09/11/20 12:30 12:45 12:53 Temperature 98.8 F 98.8 F Pulse Rate 84 85 84 Respiratory 16 16 Rate Blood Pressure 137/80 136/76 Blood Pressure 136/76 [Right] O2 Sat by Pulse 95 96 95 Oximetry 09/11/20 09/11/20 09/11/20 13:44 13:45 14:01 Temperature Pulse Rate 106 H Respiratory 17 Rate Blood Pressure 157/105 164/103 Blood Pressure [Right] O2 Sat by Pulse 96 92 93 Oximetry 09/11/20 09/11/20 09/11/20 14:15 14:31 14:45 Temperature Pulse Rate 120 H 122 H Respiratory 15 19 Rate Blood Pressure 164/103 164/103 164/103 Blood Pressure [Right] O2 Sat by Pulse 95 96 96 Oximetry 09/11/20 09/11/20 09/11/20 15:00 15:15 18:09 Temperature Pulse Rate 88 Respiratory 10 L Rate Blood Pressure 159/117 159/117 164/97 Blood Pressure [Right] O2 Sat by Pulse 93 95 91 Oximetry 09/11/20 09/11/20 09/11/20 18:15 18:31 18:45 Temperature Pulse Rate 98 H 93 H 94 H Respiratory 9 L 8 L 9 L Rate Blood Pressure 164/97 164/97 164/97 Blood Pressure [Right] O2 Sat by Pulse 96 96 98 Oximetry 09/11/20 19:00 Temperature Pulse Rate 92 H Respiratory 13 Rate Blood Pressure 163/89 Blood Pressure [Right] O2 Sat by Pulse 90 Oximetry - Reevaluation(s) Reevaluation #1: 09/11/20 20:27 Patient remains altered. I have reviewed patient's labs and imaging. CT head is negative. Patient's labs only notable for some mild hypokalemia. Her urine drug screen is pending. Previously patient has provided history and been able to talk. Reviewed all patient's old charts here. Given that she is not at her baseline we will plan for patient to be admitted for further work-up. We also attempted to reach patient's half-way for collateral information however myself nor the nurse were able to reach anyone. I also attempted to reach patient's sister however her sister is hospitalized. 09/11/20 20:28 - Lab Data Result diagrams: 09/11/20 13:20 09/11/20 13:20 Lab Results 09/11/20 09/11/20 09/11/20 Range/Units 13:20 13:20 13:20 WBC 13.1 H (4.5-11.0) K/mm3 RBC 5.08 H (3.65-5.03) M/mm3 Hgb 14.6 H (10.1-14.3) gm/dl Hct 42.3 (30.3-42.9) % MCV 83 (79-97) fl MCH 29 (28-32) pg MCHC 35 H (30-34) % RDW 14.1 (13.2-15.2) % Plt Count 362 (140-440) K/mm3 Lymph % (Auto) 10.8 L (13.4-35.0) % Johnson % (Auto) 3.6 (0.0-7.3) % Eos % (Auto) 0.2 (0.0-4.3) % Baso % (Auto) 0.7 (0.0-1.8) % Lymph # (Auto) 1.4 (1.2-5.4) K/mm3 [place] # (Auto) 0.5 (0.0-0.8) K/mm3 Eos # (Auto) 0.0 (0.0-0.4) K/mm3 Baso # (Auto) 0.1 (0.0-0.1) K/mm3 Seg Neutrophils % 84.7 H (40.0-70.0) % Seg Neutrophils # 11.1 H (1.8-7.7) K/mm3 PT 12.3 (12.2-14.9) Sec. INR 0.93 (0.87-1.13) Sodium 142 (137-145) mmol/L Potassium 3.2 L (3.6-5.0) mmol/L Chloride 104.4 (98-107) mmol/L Carbon Dioxide 21 L (22-30) mmol/L Anion Gap 20 mmol/L BUN 12 (7-17) mg/dL Creatinine 0.4 L (0.6-1.2) mg/dL Estimated GFR > 60 ml/min BUN/Creatinine Ratio 30 % Glucose 127 H (65-100) mg/dL Lactic Acid (0.7-2.0) mmol/L Calcium 10.0 (8.4-10.2) mg/dL Total Bilirubin 0.30 (0.1-1.2) mg/dL AST 16 (5-40) units/L ALT 16 (7-56) units/L Alkaline Phosphatase 92 (35-129) units/L Total Creatine Kinase 68 (30-135) units/L Troponin T < 0.010 (0.00-0.029) ng/mL Total Protein 8.9 H (6.3-8.2) g/dL Albumin 4.5 (3.9-5) g/dL Albumin/Globulin Ratio 1.0 % HCG, Qual (Negative) Salicylates (2.8-20.0) mg/dL Acetaminophen (10.0-30.0) ug/mL Plasma/Serum Alcohol (0-0.07) % 09/11/20 09/11/20 09/11/20 Range/Units 13:20 13:20 13:20 WBC (4.5-11.0) K/mm3 RBC (3.65-5.03) M/mm3 Hgb (10.1-14.3) gm/dl Hct (30.3-42.9) % MCV (79-97) fl MCH (28-32) pg MCHC (30-34) % RDW (13.2-15.2) % Plt Count (140-440) K/mm3 Lymph % (Auto) (13.4-35.0) % Johnson % (Auto) (0.0-7.3) % Eos % (Auto) (0.0-4.3) % Baso % (Auto) (0.0-1.8) % Lymph # (Auto) (1.2-5.4) K/mm3 [place] # (Auto) (0.0-0.8) K/mm3 Eos # (Auto) (0.0-0.4) K/mm3 Baso # (Auto) (0.0-0.1) K/mm3 Seg Neutrophils % (40.0-70.0) % Seg Neutrophils # (1.8-7.7) K/mm3 PT (12.2-14.9) Sec. INR (0.87-1.13) Sodium (137-145) mmol/L Potassium (3.6-5.0) mmol/L Chloride (98-107) mmol/L Carbon Dioxide (22-30) mmol/L Anion Gap mmol/L BUN (7-17) mg/dL Creatinine (0.6-1.2) mg/dL Estimated GFR ml/min BUN/Creatinine Ratio % Glucose (65-100) mg/dL Lactic Acid 0.90 (0.7-2.0) mmol/L Calcium (8.4-10.2) mg/dL Total Bilirubin (0.1-1.2) mg/dL AST (5-40) units/L ALT (7-56) units/L Alkaline Phosphatase (35-129) units/L Total Creatine Kinase (30-135) units/L Troponin T (0.00-0.029) ng/mL Total Protein (6.3-8.2) g/dL Albumin (3.9-5) g/dL Albumin/Globulin Ratio % HCG, Qual (Negative) Salicylates < 0.3 L (2.8-20.0) mg/dL Acetaminophen 5.0 L (10.0-30.0) ug/mL Plasma/Serum Alcohol (0-0.07) % 09/11/20 09/11/20 Range/Units 13:20 13:20 WBC (4.5-11.0) K/mm3 RBC (3.65-5.03) M/mm3 Hgb (10.1-14.3) gm/dl Hct (30.3-42.9) % MCV (79-97) fl MCH (28-32) pg MCHC (30-34) % RDW (13.2-15.2) % Plt Count (140-440) K/mm3 Lymph % (Auto) (13.4-35.0) % Johnson % (Auto) (0.0-7.3) % Eos % (Auto) (0.0-4.3) % Baso % (Auto) (0.0-1.8) % Lymph # (Auto) (1.2-5.4) K/mm3 Johnson # (Auto) (0.0-0.8) K/mm3 Eos # (Auto) (0.0-0.4) K/mm3 Baso # (Auto) (0.0-0.1) K/mm3 Seg Neutrophils % (40.0-70.0) % Seg Neutrophils # (1.8-7.7) K/mm3 PT (12.2-14.9) Sec. INR (0.87-1.13) Sodium (137-145) mmol/L Potassium (3.6-5.0) mmol/L Chloride (98-107) mmol/L Carbon Dioxide (22-30) mmol/L Anion Gap mmol/L BUN (7-17) mg/dL Creatinine (0.6-1.2) mg/dL Estimated GFR ml/min BUN/Creatinine Ratio % Glucose (65-100) mg/dL Lactic Acid (0.7-2.0) mmol/L Calcium (8.4-10.2) mg/dL Total Bilirubin (0.1-1.2) mg/dL AST (5-40) units/L ALT (7-56) units/L Alkaline Phosphatase (35-129) units/L Total Creatine Kinase (30-135) units/L Troponin T (0.00-0.029) ng/mL Total Protein (6.3-8.2) g/dL Albumin (3.9-5) g/dL Albumin/Globulin Ratio % HCG, Qual Negative (Negative) Salicylates (2.8-20.0) mg/dL Acetaminophen (10.0-30.0) ug/mL Plasma/Serum Alcohol < 0.01 (0-0.07) % - Medical Decision Making Patient is a 39-year-old female with history of seizure, psychiatric disorder, including schizophrenia, bipolar with history of chronic pain addiction possibly on Suboxone presents to the emergency department from her half-way for altered mental status. They are concerned that she could have ingested a drug. Differential includes toxic ingestion, postictal state due to seizure, intracranial abnormality. Plan for work-up including EKG, basic labs including tox labs, will also obtain CT head. Critical care attestation.: If time is entered above; I have spent that time in minutes in the direct care of this critically ill patient, excluding procedure time. ED Disposition Clinical Impression: Seizure disorder, Acute encephalopathy, Overdose Disposition: OP ADMIT IP TO THIS HOSP Is pt being admited?: Yes Does the pt Need Aspirin: No Condition: Stable
[2020-09-11 13:44] LABS: Basophils # (Auto) 0.1 K/mm3 (0.0-0.1); Basophils % (Auto) 0.7 % (0.0-1.8); Eosinophils % (Auto) 0.2 % (0.0-4.3); Hematocrit 42.3 % (30.3-42.9); Hemoglobin 14.6 gm/dl (10.1-14.3); Lymphocytes # (Auto) 1.4 K/mm3 (1.2-5.4); Lymphocytes % (Auto) 10.8 % (13.4-35.0); Mean Corpuscular HGB Conc 35 % (30-34); Mean Corpuscular Volume 83 fl (79-97); Monocytes # (Auto) 0.5 K/mm3 (0.0-0.8); Monocytes % (Auto) 3.6 % (0.0-7.3); Platelet Count 362 K/mm3 (140-440); Red Blood Count 5.08 M/mm3 (3.65-5.03); Red Cell Distribution Width 14.1 % (13.2-15.2)
[2020-09-11 13:48] LABS: INR 0.93 (0.87-1.13)
[2020-09-11 14:00] LABS: Alanine Aminotransferase 16 units/L (7-56); Albumin 4.5 g/dL (3.9-5); Blood Urea Nitrogen 12 mg/dL (7-17); Hemolysis Index 4
[2020-09-11 14:05] LABS: BUN/Creatinine Ratio 30
[2020-09-11] MEDS ORDERED: POTASSIUM CHLORIDE ER 20 MEQ TAB PO ONE (14:47)
[2020-09-11] MEDS ORDERED: MIDAZOLAM 5 MG/5 ML INJ MDV IV NR (15:00)
--- NOTE | 2020-09-11 16:13 | XRay Report ---
CHEST 1 VIEW 09/11/2020 3:06 PM INDICATION / CLINICAL INFORMATION: altered mental status. COMPARISON: 07/12/2020 FINDINGS: SUPPORT DEVICES: None. HEART / MEDIASTINUM: No significant abnormality. LUNGS / PLEURA: No significant pulmonary or pleural abnormality. No pneumothorax. ADDITIONAL FINDINGS: No significant additional findings. IMPRESSION: 1. No acute findings. Signer Name: Miky Bianchi MD Signed: 09/11/2020 4:09 PM Workstation Name: [id number]
--- NOTE | 2020-09-11 17:52 | Cat Scan Report ---
CT head/brain wo con INDICATION / CLINICAL INFORMATION: 39 years Female; altered mental status. TECHNIQUE: Routine CT head without contrast. All CT scans at this location are performed using CT dos e reduction for ALARA by means of automated exposure control. COMPARISON: None. FINDINGS: BRAIN / INTRACRANIAL CONTENTS: No acute hemorrhage, mass effect, midline shift, hydrocephalus, or acu te, large territorial infarct. No signs of significant atrophy or chronic infarct. No significant whi te matter abnormality seen. CRANIOCERVICAL JUNCTION: No significant abnormality. ORBITS: No significant abnormality of visualized orbits. SINUSES / MASTOIDS: Mild to moderate mucosal thickening seen in the ethmoids and left sphenoid sinus, as well as both maxillary antra. There is also an air-fluid level in the right maxillary antrum. ADDITIONAL FINDINGS: None. IMPRESSION: 1. No focal mass, hemorrhage, hydrocephalus, or acute, large territorial infarct. 2. Sinus disease, as described above. Signer Name: Jose Cruz Chavez MD, III Signed: 09/11/2020 5:48 PM Workstation Name: [email or web address] CL[facility] AT DENVILLEAugustin
[2020-09-11] MEDS ORDERED: levETIRAcetam 1000 MG/NS 0.75% 1,000 MG/100 ML BAG IV ONE (19:09)
[2020-09-11 20:53] LABS: Bilirubin,Urine NEG (Negative); Blood,Urine NEG (Negative); Color,Urine Yellow (Yellow); Mucus,Urine 2+ /HPF
[2020-09-11 20:56] LABS: Amphetamine Screen,Urine Negative; Cannabinoid Screen,Urine Negative; Methadone Screen,Urine Negative; Opiate Screen,Urine Negative
[2020-09-11 21:08] LABS: Benzodiazepines Screen,Urine Positive; Cocaine Screen,Urine Positive
[2020-09-11] MEDS ORDERED: cefTRIAXone/NS 1 GM/50 ML 1 GM/50 ML BAG IV ONE (21:30)
[2020-09-11] MEDS ORDERED: ONDANSETRON 4 MG/2 ML INJ IV PRN (21:53)
[2020-09-11] MEDS ORDERED: MAGNESIUM HYDROXIDE (MOM) ORAL LIQD UDC PO PRN (21:53)
[2020-09-11] MEDS ORDERED: ACETAMINOPHEN 325 MG TAB PO PRN (21:53)
[2020-09-11] MEDS ORDERED: SODIUM CHLORIDE 0.9% 1000 ML 1,000 ML IV SCH (22:00)
--- NOTE | 2020-09-11 22:06 | History and Physical Report ---
History of Present Illness Date of examination: 09/11/20 Date of admission: 09/11/20 21:34 Chief complaint: Altered Mental Status History of present illness: Patient is a 39-year-old female with known history of seizures brought into the emergency room today for changes in mental status and possible drug ingestion. Patient resides in a [facility] and staff were concerned that patient may have overdosed on some medications. Most of the history was gotten from the ER staff as patient is altered and not communicating. Work-up in the emergency room today reveals a UTI. Leukocytosis of 13.1, mild hypokalemia of 3.2. UDS reveals cocaine, benzodiazepine and barbiturate. CT scan of the head was unremarkable. Chest x-ray was unremarkable. Patient is being worked up for for encephalopathy possibly secondary to drug overdose UTI. Past History Past Medical History: hypertension, seizures, other (Asthma,TIA) Past Surgical History: Other (Right hip surgery,Back surgery) Social history: smoking (Current daily smoker), other (Marijuana abuse, resides in a pen[facility]) Medications and Allergies Allergies Allergy/AdvReac Type Severity Reaction Status Date / Time clarithromycin [From Biaxin] Allergy Hives Verified 05/24/20 12:20 prochlorperazine Allergy Vomiting Verified 05/24/20 12:20 [From Compazine] tramadol Allergy Seizure Verified 05/24/20 12:20 Home Medications Medication Instructions Recorded Confirmed Last Taken Type PHENobarbitaL [PHENobarbital] 50 mg PO BID 30 Days #60 tablet 07/13/20 Unknown Rx Active Meds: Active Medications Acetaminophen (Acetaminophen 325 Mg Tab) 650 mg PO Q4H PRN PRN Reason: Pain MILD(1-3)/Fever >100.5/PHILLIPS Enoxaparin Sodium (Enoxaparin 40 Mg/0.4 Ml Inj) 40 mg SUB-Q QDAY@2200 MIKIE; Protocol Sodium Chloride (Nacl 0.9% 1000 Ml) 1,000 mls @ 125 mls/hr IV DIRECT MIKIE Magnesium Hydroxide (Magnesium Hydroxide (Mom) Oral Liqd Udc) 30 ml PO Q4H PRN PRN Reason: Constipation Midazolam HCl (Midazolam 5 Mg/5 Ml Inj Mdv) 2 mg IV ONCE NR Stop: 09/11/20 23:59 Last Admin: 09/11/20 16:02 Dose: 2 mg Documented by: Ondansetron HCl (Ondansetron 4 Mg/2 Ml Inj) 4 mg IV Q8H PRN PRN Reason: Nausea And Vomiting Sodium Chloride (Sodium Chloride 0.9% 10 Ml Flush Syringe) 10 ml IV BID MIKIE Sodium Chloride (Sodium Chloride 0.9% 10 Ml Flush Syringe) 10 ml IV PRN PRN PRN Reason: LINE FLUSH Review of Systems ROS unobtainable: due to mental status Exam - Constitutional Vitals: Temp Pulse Resp BP Pulse Ox 98.8 F 92 H 13 163/89 90 09/11/20 12:53 09/11/20 19:00 09/11/20 19:00 09/11/20 19:00 09/11/20 19:00 General appearance: Present: no acute distress, well-nourished - EENT Eyes: Present: PERRL, EOM intact. Absent: scleral icterus ENT: hearing intact, clear oral mucosa, dentition normal - Neck Neck: Present: supple, normal ROM - Respiratory Respiratory effort: normal Respiratory: bilateral: CTA - Cardiovascular Rhythm: regular Heart Sounds: Present: S1 & S2. Absent: gallop, systolic murmur, diastolic mur mur, rub - Extremities Extremities: no ischemia, pulses intact, pulses symmetrical, No edema, Full ROM Peripheral Pulses: within normal limits - Abdominal General gastrointestinal: Present: soft, non-tender, non-distended, normal bowel sounds. Absent: mass - Integumentary Integumentary: Present: clear, warm, dry. Absent: rash - Musculoskeletal Musculoskeletal: strength equal bilaterally - Psychiatric Psychiatric: cooperative, other (Still appears confused) - Neurologic Neurologic: CNII-XII intact, no focal deficits, moves all extremities HEART Score - HEART Score Troponin: Troponin T < 0.010 ng/mL (0.00-0.029) 09/11/20 13:20 Results - Labs CBC & Chem 7: 09/11/20 13:20 09/11/20 13:20 Labs: Abnormal lab results 09/11/20 09/11/20 09/11/20 Range/Units 13:20 13:20 13:20 WBC 13.1 H (4.5-11.0) K/mm3 RBC 5.08 H (3.65-5.03) M/mm3 Hgb 14.6 H (10.1-14.3) gm/dl MCHC 35 H (30-34) % Lymph % (Auto) 10.8 L (13.4-35.0) % Seg Neutrophils % 84.7 H (40.0-70.0) % Seg Neutrophils # 11.1 H (1.8-7.7) K/mm3 Potassium 3.2 L (3.6-5.0) mmol/L Carbon Dioxide 21 L (22-30) mmol/L Creatinine 0.4 L (0.6-1.2) mg/dL Glucose 127 H (65-100) mg/dL Total Protein 8.9 H (6.3-8.2) g/dL Urine WBC (Auto) (0.0-6.0) /HPF Salicylates < 0.3 L (2.8-20.0) mg/dL Acetaminophen (10.0-30.0) ug/mL 09/11/20 09/11/20 Range/Units 13:20 Unknown WBC (4.5-11.0) K/mm3 RBC (3.65-5.03) M/mm3 Hgb (10.1-14.3) gm/dl MCHC (30-34) % Lymph % (Auto) (13.4-35.0) % Seg Neutrophils % (40.0-70.0) % Seg Neutrophils # (1.8-7.7) K/mm3 Potassium (3.6-5.0) mmol/L Carbon Dioxide (22-30) mmol/L Creatinine (0.6-1.2) mg/dL Glucose (65-100) mg/dL Total Protein (6.3-8.2) g/dL Urine WBC (Auto) 30.0 H (0.0-6.0) /HPF Salicylates (2.8-20.0) mg/dL Acetaminophen 5.0 L (10.0-30.0) ug/mL Assessment and Plan - Patient Problems (1) Acute encephalopathy Current Visit: Yes Status: Acute Plan to address problem: Possibly secondary to drug overdose. Will monitor mental status. (2) UTI (urinary tract infection) Current Visit: Yes Status: Acute Plan to address problem: Patient started on empiric IV antibiotics. We will Await urine culture results. (3) Seizure disorder Current Visit: Yes Status: Acute Plan to address problem: We will place on seizure precautions. We will continue on Keppra and also request neurology evaluation. (4) DVT prophylaxis Current Visit: No Status: Acute Plan to address problem: We placed on subcutaneous Lovenox. (5) Full code status Current Visit: Yes Status: Acute Plan to address problem: Patient is a full code
[2020-09-12] MEDS: ENOXAPARIN 40 MG/0.4 ML INJ SUB-Q SCH (01:36)
[2020-09-12 06:48] LABS: Basophils # (Auto) 0.1 K/mm3 (0.0-0.1); Eosinophils % (Auto) 0.3 % (0.0-4.3); Hematocrit 40.3 % (30.3-42.9); Hemoglobin 13.8 gm/dl (10.1-14.3); Lymphocytes % (Auto) 15.3 % (13.4-35.0); Mean Corpuscular HGB Conc 34 % (30-34); Mean Corpuscular Volume 84 fl (79-97); Monocytes # (Auto) 0.9 K/mm3 (0.0-0.8); Monocytes % (Auto) 6.4 % (0.0-7.3); Platelet Count 347 K/mm3 (140-440); Red Blood Count 4.78 M/mm3 (3.65-5.03); Red Cell Distribution Width 14.3 % (13.2-15.2)
[2020-09-12 06:51] LABS: Blood Urea Nitrogen 15 mg/dL (7-17); Calcium 9.5 mg/dL (8.4-10.2); Hemolysis Index 2
[2020-09-12 06:57] LABS: INR 1.07 (0.87-1.13)
[2020-09-12 07:02] LABS: BUN/Creatinine Ratio 25
[2020-09-12] MEDS: levETIRAcetam 500 MG in DEXTROSE 5% IN WATER 100 ML IV SCH (10:45)
[2020-09-12] MEDS: cefTRIAXone/NS 1 GM/50 ML 1 GM/50 ML BAG IV SCH (10:46)
--- NOTE | 2020-09-12 23:36 | Progress Note ---
Assessment and Plan (1) Acute encephalopathy Current Visit: Yes Status: Acute Plan to address problem: Secondary to cocaine and seizures No CVA (2) UTI (urinary tract infection) Current Visit: Yes Status: Acute Plan to address problem: Continue Rocephin (3) Seizure disorder Current Visit: Yes Status: Acute Plan to address problem: We will place on seizure precautions. We will continue on Keppra and also request neurology evaluation. (4) DVT prophylaxis Current Visit: No Status: Acute Plan to address problem: We placed on subcutaneous Lovenox. (5) Full code status Current Visit: Yes Status: Acute Plan to address problem: Patient is a full code Subjective Date of service: 09/12/20 Principal diagnosis: Acute encephalopathy Interval history: Patient is a 39-year-old female with known history of seizures brought into the emergency room today for changes in mental status and possible drug ingestion. Patient resides in a long term and staff were concerned that patient may have overdosed on some medications. Most of the history was gotten from the ER staff as patient is altered and not communicating. Work-up in the emergency room today reveals a UTI. Leukocytosis of 13.1, mild hypokalemia of 3.2. UDS reveals cocaine, benzodiazepine and barbiturate. CT scan of the head was unremarkable. Chest x-ray was unremarkable. Patient is being worked up for for encephalopathy possibly secondary to drug overdose UTI. Objective - Constitutional Vitals: Vital Signs - 12hr 09/12/20 09/12/20 09/12/20 11:58 19:05 20:29 Temperature 97.9 F 99.3 F Pulse Rate 78 48 L 42 L Respiratory 19 12 Rate Blood Pressure 127/71 Blood Pressure 133/67 [Right] O2 Sat by Pulse 94 93 Oximetry General appearance: Present: no acute distress, well-nourished - EENT Eyes: PERRL, EOM intact ENT: hearing intact, clear oral mucosa Ears: bilateral: normal - Neck Neck: supple, normal ROM - Respiratory Respiratory effort: normal Respiratory: bilateral: CTA - Breasts Breasts: normal - Cardiovascular Heart rate: 78 Rhythm: regular Heart Sounds: Present: S1 & S2. Absent: gallop, rub Extremities: pulses intact, No edema, normal color, Full ROM - Gastrointestinal General gastrointestinal: Present: soft, non-tender, non-distended, normal bowel sounds - Genitourinary Female genitourinary: normal - Integumentary Integumentary: clear, warm, dry - Musculoskeletal Musculoskeletal: 1, strength equal bilaterally - Neurologic Neurologic: moves all extremities - Psychiatric Psychiatric: memory intact, appropriate mood/affect, intact judgment & insight - Labs CBC & Chem 7: 09/14/20 07:51 09/14/20 07:51 Labs: Abnormal lab results 09/12/20 09/12/20 09/12/20 Range/Units 06:15 06:15 07:35 WBC 13.4 H (4.5-11.0) K/mm3 [place] # (Auto) 0.9 H (0.0-0.8) K/mm3 Seg Neutrophils % 77.0 H (40.0-70.0) % Seg Neutrophils # 10.3 H (1.8-7.7) K/mm3 Potassium 2.9 L* (3.6-5.0) mmol/L Glucose 128 H (65-100) mg/dL POC Glucose 118 H (70-105) mg/dL 09/12/20 09/12/20 Range/Units 12:32 16:43 WBC (4.5-11.0) K/mm3 [place] # (Auto) (0.0-0.8) K/mm3 Seg Neutrophils % (40.0-70.0) % Seg Neutrophils # (1.8-7.7) K/mm3 Potassium (3.6-5.0) mmol/L Glucose (65-100) mg/dL POC Glucose 117 H 131 H (70-105) mg/dL HEART Score - HEART Score Troponin: Troponin T < 0.010 ng/mL (0.00-0.029) 09/11/20 13:20
[2020-09-13] MEDS: ENOXAPARIN 40 MG/0.4 ML INJ SUB-Q SCH ×2 (00:14→21:24)
[2020-09-13] MEDS: levETIRAcetam 500 MG in DEXTROSE 5% IN WATER 100 ML IV SCH ×3 (00:15→21:23)
[2020-09-13] MEDS ORDERED: POTASSIUM CHLORIDE ER 20 MEQ TAB PO ONE (02:55)
[2020-09-13] MEDS ORDERED: POTASSIUM CHLORIDE 10 MEQ 10 MEQ/100 ML BAG IV ONE (06:41)
[2020-09-13] MEDS: cefTRIAXone/NS 1 GM/50 ML 1 GM/50 ML BAG IV SCH (11:20)
--- NOTE | 2020-09-13 21:42 | Progress Note ---
Assessment and Plan (1) Acute encephalopathy Current Visit: Yes Status: Acute Plan to address problem: Possibly secondary to drug overdose. Will monitor mental status. Still confused Unable to walk (2) UTI (urinary tract infection) Current Visit: Yes Status: Acute Plan to address problem: Patient started on empiric IV antibiotics. We will Await urine culture results. (3) Seizure disorder Current Visit: Yes Status: Acute Plan to address problem: We will place on seizure precautions. We will continue on Keppra and also request neurology evaluation. Unable to walk (4) DVT prophylaxis Current Visit: No Status: Acute Plan to address problem: We placed on subcutaneous Lovenox. (5) Full code status Current Visit: Yes Status: Acute Plan to address problem: Patient is a full code Subjective Date of service: 09/13/20 Principal diagnosis: Acute encephalopathy Interval history: Patient is a 39-year-old female with known history of seizures brought into the emergency room today for changes in mental status and possible drug ingestion. Patient resides in a care home and staff were concerned that patient may have overdosed on some medications. Most of the history was gotten from the ER staff as patient is altered and not communicating. Work-up in the emergency room today reveals a UTI. Leukocytosis of 13.1, mild hypokalemia of 3.2. UDS reveals cocaine, benzodiazepine and barbiturate. CT scan of the head was unremarkable. Chest x-ray was unremarkable. Patient is being worked up for for encephalopathy possibly secondary to drug overdose UTI. 09/13/2020 Patient still confused and altered Unable to walk Objective - Constitutional Vitals: Vital Signs - 12hr 09/13/20 09/13/20 09/13/20 12:53 15:31 19:57 Temperature 98.9 F 98.1 F 98.6 F Pulse Rate 79 45 L 39 L Respiratory 20 20 20 Rate Blood Pressure 163/102 148/84 144/77 O2 Sat by Pulse 98 99 98 Oximetry General appearance: Present: no acute distress, well-nourished - EENT Eyes: PERRL, EOM intact ENT: hearing intact, clear oral mucosa Ears: bilateral: normal - Neck Neck: supple, normal ROM - Respiratory Respiratory effort: normal Respiratory: bilateral: CTA - Breasts Breasts: normal - Cardiovascular Heart rate: 78 Rhythm: regular Heart Sounds: Present: S1 & S2. Absent: gallop, rub Extremities: pulses intact, No edema, normal color, Full ROM - Gastrointestinal General gastrointestinal: Present: soft, non-tender, non-distended, normal bowel sounds - Genitourinary Female genitourinary: normal - Integumentary Integumentary: clear, warm, dry - Musculoskeletal Musculoskeletal: 1, strength equal bilaterally - Neurologic Neurologic: moves all extremities - Psychiatric Psychiatric: memory intact, appropriate mood/affect, intact judgment & insight - Labs CBC & Chem 7: 09/14/20 07:51 09/14/20 07:51 HEART Score - HEART Score Troponin: Troponin T < 0.010 ng/mL (0.00-0.029) 09/11/20 13:20
[2020-09-14 01:03] LABS: Hemolysis Index 6
[2020-09-14 01:20] LABS: BUN/Creatinine Ratio 3; Blood Urea Nitrogen 1 mg/dL (7-17)
[2020-09-14] MEDS: POTASSIUM CHLORIDE ER 20 MEQ TAB PO SCH ×5 (01:34→08:05)
[2020-09-14 08:52] LABS: Basophils # (Auto) 0.1 K/mm3 (0.0-0.1); Basophils % (Auto) 1.2 % (0.0-1.8); Eosinophils # (Auto) 0.2 K/mm3 (0.0-0.4); Eosinophils % (Auto) 1.2 % (0.0-4.3); Hematocrit 38.9 % (30.3-42.9); Hemoglobin 13.5 gm/dl (10.1-14.3); Lymphocytes # (Auto) 2.9 K/mm3 (1.2-5.4); Lymphocytes % (Auto) 23.5 % (13.4-35.0); Mean Corpuscular HGB Conc 35 % (30-34); Mean Corpuscular Volume 85 fl (79-97); Monocytes # (Auto) 0.7 K/mm3 (0.0-0.8); Platelet Count 279 K/mm3 (140-440); Red Cell Distribution Width 14.2 % (13.2-15.2)
[2020-09-14 09:15] LABS: Alanine Aminotransferase 19 units/L (7-56); Blood Urea Nitrogen 9 mg/dL (7-17); Calcium 9.1 mg/dL (8.4-10.2); Hemolysis Index 21
[2020-09-14 09:24] LABS: BUN/Creatinine Ratio 23
[2020-09-14] MEDS: levETIRAcetam 500 MG in DEXTROSE 5% IN WATER 100 ML IV SCH (11:01)
[2020-09-14] MEDS: cefTRIAXone/NS 1 GM/50 ML 1 GM/50 ML BAG IV SCH (11:01)
[2020-09-14] MEDS: levETIRAcetam 500 MG TAB PO SCH (23:16)
[2020-09-14] MEDS: ENOXAPARIN 40 MG/0.4 ML INJ SUB-Q SCH (23:16)
[2020-09-15 07:10] VITALS: BP 139/86
[2020-09-15] MEDS: cefTRIAXone/NS 1 GM/50 ML 1 GM/50 ML BAG IV SCH (09:48)
[2020-09-15] MEDS: levETIRAcetam 500 MG TAB PO SCH (09:48)
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
--- NOTE | 2020-09-15 16:40 | Progress Note ---
Assessment and Plan (1) Acute encephalopathy Current Visit: Yes Status: Acute Plan to address problem: Possibly secondary to drug overdose. Will monitor mental status. Still confused Unable to walk (2) UTI (urinary tract infection) Current Visit: Yes Status: Acute Plan to address problem: Patient started on empiric IV antibiotics. We will Await urine culture results. (3) Seizure disorder Current Visit: Yes Status: Acute Plan to address problem: We will place on seizure precautions. We will continue on Keppra and also request neurology evaluation. Unable to walk (4) DVT prophylaxis Current Visit: No Status: Acute Plan to address problem: We placed on subcutaneous Lovenox. (5) Full code status Current Visit: Yes Status: Acute Plan to address problem: Patient is a full code Subjective Date of service: 09/14/20 Principal diagnosis: Acute encephalopathy Interval history: Patient is a 39-year-old female with known history of seizures brought into the emergency room today for changes in mental status and possible drug ingestion. Patient resides in a senior care and staff were concerned that patient may have overdosed on some medications. Most of the history was gotten from the ER staff as patient is altered and not communicating. Work-up in the emergency room today reveals a UTI. Leukocytosis of 13.1, mild hypokalemia of 3.2. UDS reveals cocaine, benzodiazepine and barbiturate. CT scan of the head was unremarkable. Chest x-ray was unremarkable. Patient is being worked up for for encephalopathy possibly secondary to drug overdose UTI. 09/13/2020 Patient still confused and altered Unable to walk 09/14/2020 Patient still confused and altered Unable to walk Objective - Constitutional Vitals: Vital Signs - 12hr 09/15/20 07:02 Temperature 98.7 F Pulse Rate 70 Respiratory 20 Rate Blood Pressure 139/86 O2 Sat by Pulse 94 Oximetry General appearance: Present: no acute distress, well-nourished - EENT Eyes: PERRL, EOM intact ENT: hearing intact, clear oral mucosa Ears: bilateral: normal - Neck Neck: supple, normal ROM - Respiratory Respiratory effort: normal Respiratory: bilateral: CTA - Breasts Breasts: normal - Cardiovascular Heart rate: 78 Rhythm: regular Heart Sounds: Present: S1 & S2. Absent: gallop, rub Extremities: pulses intact, No edema, normal color, Full ROM - Gastrointestinal General gastrointestinal: Present: soft, non-tender, non-distended, normal bowel sounds - Genitourinary Female genitourinary: normal - Integumentary Integumentary: clear, warm, dry - Musculoskeletal Musculoskeletal: 1, strength equal bilaterally - Neurologic Neurologic: moves all extremities - Psychiatric Psychiatric: memory intact, appropriate mood/affect, intact judgment & insight - Labs CBC & Chem 7: 09/14/20 07:51 09/14/20 07:51 HEART Score - HEART Score Troponin: Troponin T < 0.010 ng/mL (0.00-0.029) 09/11/20 13:20
--- NOTE | 2020-09-15 16:40 | Discharge Summary ---
Providers - Providers Date of Admission: 09/12/20 12:00 Date of discharge: 09/15/20 Attending physician: ALEXANDREA GÓMEZ 09/11/20 21:57 Consult to Dietitian/Nutrition [CONS] Routine Physician Instructions: Reason For Exam: Reason for Consult: Diet education 09/11/20 22:00 Consult to Physician [CONS] Routine Comment: Consulting Provider: ANNA TESFAYE Physician Instructions: Reason For Exam: ENCEPALOPATHY, R/O SEIZURES, DRUG OVERDOSE 09/15/20 12:06 Consult to Mental Health [CONS] Routine Reason For Exam: ams Primary care physician: [facility]ER Hospitalization Condition: Stable Hospital course: Subjective Date of service: 09/15/20 Principal diagnosis: Acute encephalopathy Interval history: Patient is a 39-year-old female with known history of seizures brought into the emergency room today for changes in mental status and possible drug ingestion. Patient resides in a retirement and staff were concerned that patient may have overdosed on some medications. Most of the history was gotten from the ER staff as patient is altered and not communicating. Work-up in the emergency room today reveals a UTI. Leukocytosis of 13.1, mild hypokalemia of 3.2. UDS reveals cocaine, benzodiazepine and barbiturate. CT scan of the head was unremarkable. Chest x-ray was unremarkable. Patient is being worked up for for encephalopathy possibly secondary to drug overdose UTI. 09/13/2020 Patient still confused and altered Unable to walk 09/14/2020 Patient still confused and altered Unable to walk 09/15/2020 Patient more alert and oriented Near normal baseline Able to walk Neurology consult appreciated No driving Continue to take Keppra and follow-up with PCP/neurologist Assessment and Plan (1) Acute metabolic encephalopathy Current Visit: Yes Status: Acute Plan to address problem: Possibly secondary to drug overdose. Will monitor mental status. Alert and oriented Resolved (2) UTI (urinary tract infection) Current Visit: Yes Status: Acute Plan to address problem: Finish the course of antibiotics (3) Seizure disorder Current Visit: Yes Status: Acute Plan to address problem: No seizures We will discharge on oral Keppra 750 every 12 #4 cocaine abuse patient counseled about cocaine abuse and the dangers of cocaine abuse. Patient is in agreement about stopping the cocaine Disposition: - TO HOME OR SELFCARE - Discharge Diagnoses (1) Acute encephalopathy Status: Acute (2) Overdose Status: Acute (3) Seizure disorder Status: Acute Comment: Patient to be discharged on Keppra 750 twice a day Patient to avoid driving (4) UTI (urinary tract infection) Status: Acute (5) Cocaine abuse Status: Acute (6) MDD (major depressive disorder), recurrent episode, moderate Status: Chronic Comment: Patient initiated on antidepressants Core Measure Documentation - Palliative Care Palliative Care/ Comfort Measures: Not Applicable - Core Measures Any of the following diagnoses?: none Exam - Constitutional Vitals: Temp Pulse Resp BP Pulse Ox 98.7 F 70 20 139/86 94 09/15/20 07:02 09/15/20 07:02 09/15/20 07:02 09/15/20 07:02 09/15/20 07:02 General appearance: Present: no acute distress, well-nourished - EENT Eyes: Present: PERRL ENT: hearing intact, clear oral mucosa - Neck Neck: Present: supple, normal ROM - Respiratory Respiratory effort: normal Respiratory: bilateral: CTA - Cardiovascular Heart rate: 78 Rhythm: regular Heart Sounds: Present: S1 & S2. Absent: rub, click - Extremities Extremities: pulses symmetrical, No edema Peripheral Pulses: within normal limits - Abdominal General gastrointestinal: Present: soft, non-tender, non-distended, normal bowel sounds Female genitourinary: Present: normal - Integumentary Integumentary: Present: clear, warm, dry - Musculoskeletal Musculoskeletal: gait normal, strength equal bilaterally - Psychiatric Psychiatric: appropriate mood/affect, intact judgment & insight - Neurologic Neurologic: CNII-XII intact, moves all extremities Plan Activity: no restrictions Diet: regular Follow up with: KAI MENDEZ MD [Primary Care Provider] - 3-5 Days CHRISTIAN ACUNA MD [Staff Physician] - 7 Days
--- NOTE | 2020-09-15 16:41 | Discharge Summary ---
Providers - Providers Date of Admission: 09/12/20 12:00 Date of discharge: 09/15/20 Attending physician: ALEXANDREA GÓMEZ 09/11/20 21:57 Consult to Dietitian/Nutrition [CONS] Routine Physician Instructions: Reason For Exam: Reason for Consult: Diet education 09/11/20 22:00 Consult to Physician [CONS] Routine Comment: Consulting Provider: ANNA TESFAYE Physician Instructions: Reason For Exam: ENCEPALOPATHY, R/O SEIZURES, DRUG OVERDOSE 09/15/20 12:06 Consult to Mental Health [CONS] Routine Reason For Exam: ams Primary care physician: [employer]ER [employer] Hospitalization Condition: Stable Disposition: DC-01 TO HOME OR SELFCARE Core Measure Documentation - Palliative Care Palliative Care/ Comfort Measures: Not Applicable Exam - Constitutional Vitals: Temp Pulse Resp BP Pulse Ox 98.7 F 70 20 139/86 94 09/15/20 07:02 09/15/20 07:02 09/15/20 07:02 09/15/20 07:02 09/15/20 07:02 Plan Follow up with: PRIMARY CAREMD [Primary Care Provider] - 3-5 Days
== END 2020-09-15 18:35 | disposition home or self-care (01) | DRG 917 ==
LOC: ED 11:47 → 3A 21:34 → 4A 09-12 02:04 → OBSVTOIN 09-12 12:00
PROVIDERS: ADMIT Internal Medicine Geriatric Medicine; ATTEND Internal Medicine
DX: T40.5X1A Poisoning by cocaine, accidental (unintentional), initial encounter (principal); G92 Toxic encephalopathy; N39.0 Urinary tract infection, site not specified; F33.1 Major depressive disorder, recurrent, moderate; T42.4X1A Poisoning by benzodiazepines, accidental (unintentional), initial encounter; T42.3X1A Poisoning by barbiturates, accidental (unintentional), initial encounter; G40.909 Epilepsy, unspecified, not intractable, without status epilepticus; I10 Essential (primary) hypertension; J45.909 Unspecified asthma, uncomplicated; F17.200 Nicotine dependence, unspecified, uncomplicated; F19.10 Other psychoactive substance abuse, uncomplicated; Z88.6 Allergy status to analgesic agent; Z88.1 Allergy status to other antibiotic agents; Z79.899 Other long term (current) drug therapy; Z86.73 Personal history of transient ischemic attack (TIA), and cerebral infarction without residual deficits; Y92.89 Other specified places as the place of occurrence of the external cause
CPT/HCPCS: 36415; 70450; 71045; 80048; 80053; 80307; 80320; 81001; 82140; 82550; 82962; 84484; 84703; 85025; 85610; 87086; 93005; 96365; 96375; G0378; G0480; J0696; J1650; J1953; J2250; J7030